=== PATIENT | female | born 1975 | race Caucasian/White ===

== ENCOUNTER 2016-09-15 12:15 | Emergency (ER) | payer MEDICAID ==
[~2016-09-15] VITALS: Ht 165.1 cm; Wt 86.6 kg
[~2016-09-15 12:15] MED LIST: ADVAIR 100-501 EACH INH; BACK & BODY PA1 EACH PO; CEPHALEXIN500 MG PO; CORTISPORIN EAR10 ML AS; DOXYCYCLINE HY100 MG PO; GABAPENTIN600 MG PO; GUAIFENESIN-COD10 ML PO; IBUPROFEN600 MG PO; KEFLEX500 MG PO; LEVOFLOXACIN750 MG PO; NEURONTIN600 MG PO; NORCO 5-325 TA1 EACH PO; ORPHENADRINE C100 MG PO; PSEUDOEPHEDRINE30 MG PO; TRAMADOL HCL50 MG PO; ULTRAM50 MG PO; VENTOLIN HFA18 GM INH; ZYRTEC-D TABLE1 EACH PO
[2016-09-15] MEDS ORDERED: FERROCITE324 MG PO (12:27)
[2016-11-01] MEDS ORDERED: LAMICTAL100 MG PO (20:27)
== END 2016-09-15 13:23 | disposition home or self-care (01) ==
LOC: ED 12:15
DX: T52.91XA Toxic effect of unspecified organic solvent, accidental (unintentional), initial encounter (principal); T30.4 Corrosion of unspecified body region, unspecified degree; F17.200 Nicotine dependence, unspecified, uncomplicated; Z90.49 Acquired absence of other specified parts of digestive tract; Z88.8 Allergy status to other drugs, medicaments and biological substances; Z88.0 Allergy status to penicillin; Z79.899 Other long term (current) drug therapy
CPT/HCPCS: 99282

== ENCOUNTER 2017-09-18 15:50 | Emergency (ER) | payer MEDICAID ==
[~2017-09-18] VITALS: Ht 165.1 cm; Wt 91.6 kg
[~2017-09-18 15:50] MED LIST changes: +FERROCITE324 MG PO; +LAMICTAL100 MG PO
[2017-09-18] MEDS ORDERED: DULERA 200 MCG/13 GM INH (16:14)
[2017-09-18] MEDS ORDERED: ACETAMINOPHEN500 MG PO (16:15)
[2017-09-18] MEDS ORDERED: AUGMENTIN 875-1 EACH PO (16:16)
[2017-09-18] MEDS ORDERED: NORCO 7.5-3251 EACH PO (16:18)
== END 2017-09-18 16:38 | disposition home or self-care (01) ==
LOC: ED 15:50
DX: H70.002 Acute mastoiditis without complications, left ear (principal); F17.200 Nicotine dependence, unspecified, uncomplicated; Z88.8 Allergy status to other drugs, medicaments and biological substances; Z79.899 Other long term (current) drug therapy
CPT/HCPCS: 99282

== ENCOUNTER 2017-10-06 20:53 | Emergency (ER) | payer MEDICAID ==
[~2017-10-06] VITALS: Ht 165.1 cm; Wt 89.8 kg
[~2017-10-06 20:53] MED LIST changes: +ACETAMINOPHEN500 MG PO; +AUGMENTIN 875-1 EACH PO; +DULERA 200 MCG/13 GM INH; +NORCO 7.5-3251 EACH PO
[2017-10-06] MEDS ORDERED: ASPIRIN325 MG PO (21:44)
[2017-10-06] MEDS ORDERED: TYLOPHEN500 MG PO (21:44)
[2017-10-06] MEDS ORDERED: NEURONTIN300 MG PO (21:45)
--- OUTSIDE RECORDS SUMMARY | 2017-10-07 01:06 | XMS | Clinical Summary ---
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 | radicu | | | lopath | | | y8/4/2 | | | 015Bip | | | olar | | | affect | | | alana | | | disord | | | er, | | | curren | | | t | | | episod | | | e mild | | | | | | (HCC)8 | | | / | | | 5Drug | | | addict | | | ion | | | (HCC)8 | | | /4201 | | | 5Seizu | | | res | | | (HCC)? | | | Past | | | Surgic | | | al | | | Histor | | | yProce | | | dureLa | | | terali | | | tyDate | | | Tympan | | | ostomy | | | tube | | | placem | | | entBil | | | ateral | | | 02/02/ | | | 10vent | | | ilatio | | | n tube | | | | | | bilate | | | ralMas | | | toid | | | surger | | | yBilat | | | eral02 | | | /02/10 | | | radica | | | l | | | mastoi | | | dectom | | | y | | | bilate | | | ralCho | | | lecyst | | | ectomy | | | Lumbar | | | disc | | | surger | | | yUpper | | | | | | gastro | | | intest | | | inal | | | endosc | | | opy11/ | | | 20/08U | | | pper | | | gastro | | | intest | | | inal | | | endosc | | | opy05/ | | | 22/071 | | | . | | | Upper | | | gastro | | | intest | | | inal | | | bleedi | | | ng | | | from | | | antral | | | | | | erosio | | | ns; 2. | | | | | | Chroni | | | c | | | abdomi | | | nal | | | pain, | | | etiolo | | | gy | | | unclea | | | r.Hand | | | | | | surger | | | y7/201 | | | 3x5Bac | | | k | | | surger | | | yAbdom | | | en | | | surger | | | yAdeno | | | idecto | | | myInci | | | erwin | | | and | | | draina | | | ge10/3 | | | 02/2013 | | | IandD | | | of | | | LEFT | | | Ankle | | | Absess | | | ;Later | | | ality: | | | | | | Left;S | | | urgeon | | | : Osmany | | | E | | | Willar | | | d, | | | MD;Loc | | | ation: | | | [facility] | | | MAIN | | | ORAnkl | | | e | | | surger | | | yLeft? | | | ?6/ | | | 19/15 | | | 12:00 | | | AM | | | [facility] | | [facility] | | | alFrom | | | PCP | | | Obtain | | | | | | medica | | | tion | | | from a | | | | | | single | | | | | | source | | | .All | | | medica | | | tion | | | should | | | be | | | obtain | | | ed | | | from | | | PCP - | | | Joce | | | Hendricks | | | Refer | | | back | | | to PCP | | | for | | | manage | | | ment | | | of all | | | | | | chroni | | | c | | | condit | | | ions.C | | | are | | | Guidel | | | slim | | | Restri | | | ct use | | | of | | | opioid | | | s in | | | ED to | | | only | | | obviou | | | s | | | trauma | | | or | | | severe | | | | | | medica | | | l | | | issues | | | . | | | Establ | | | meka | | | clearl | | | y that | | | no | | | opiate | | | s or | | | benzod | | | iazepi | | | yo | | | will | | | be | | | given | | | for | | | chroni | | | c | | | condit | | | ions. | | | Offer | | | | | | crisis | | | | | | servic | | | es for | | | | | | referr | | | al to | | | mental | | | | | | health | | | or | | | drug | | | depend | | | ency | | | treatm | | | ent. | | | Questi | | | on if | | | Primar | | | y Care | | | has | | | been | | | establ | | | ished. | | | | | | Provid | | | e | | | educat | | | ion | | | regard | | | ing | | | approp | | | riate | | | use of | | | the | | | Emerge | | | ncy | | | RoomHi | | | story | | | | | | Reason | | | for | | | Referr | | | al.Pat | | | ient | | | was | | | automa | | | ticall | | | y | | | referr | | | ed by | | | YOKASTA | | | on Tue | | | Mar | | | 12 | | | 15:28: | | | 02 MDT | | | 2012 | | | for | | | meetin | | | g or | | | exceed | | | ing | | | the | | | number | | | of | | | visits | | | | | | define | | | d by | | | your | | | facili | | | ty.Mis | | | cellan | | | eous | | | Other | | | NotesH | | | istory | | | of | | | metham | | | phetam | | | ine | | | abuse | | | and | | | drug | | | seekig | | | n | | | behavi | | | orCrit | | | eria | | | met | | | Care | | | Guidel | | | slim | | | Medica | | | id 5 | | | in 12 | | | 4 | | | visits | | | in | | | 60Know | | | n | | | Aliase | | | sNo | | | known | | | aliase | | | s. The | | | above | | | | | | inform | | | ation | | | is | | | provid | | | ed for | | | the | | | sole | | | purpos | | | e of | | | patien | | | t | | | treatm | | | ent. | | | Use of | | | this | | | inform | | | ation | | | beyond | | | the | | | terms | | | of | | | Data | | | Sharin | | | g | | | Memora | | | ndum | | | of | | | Unders | | | tandin | | | g and | | | Licens | | | e | | | Agreem | | | ent is | | | | | | prohib | | | ited. | | | In | | | certai | | | n | | | cases | | | not | | | all | | | visits | | | may | | | be | | | repres | | | ented. | | | | | | Consul | | | t the | | | aforem | | | ention | | | ed | | | facili | | | ties | | | for | | | additi | | | onal | | | inform | | | ation. | | | 2018 | | | Collec | | | tive | | | Medica | | | l | | | Techn[employer] | | | logies | | | , Inc[employer] | | | - | | | [place] | | | [place] | | | [place], | | | [place] - | | | info@c | | | ollect | | | ivemed | | | icalte | | | ch.com | | | | +---+--------+ + +--------+ +---+ + | XR KNEE RIGHT 1 - 2 | STAT | 08/25/2017 | | Results for this | | VW | | 1341 PDT | | procedure are in the | | | | | | results section. | + +--------+ +---+ + | ED INFORMATION | Routin | 08/25/2017 | | | | EXCHANGE | e | 1217 PDT | | | + +--------+ +---+ + +---+--------+ | | | | | Proced | | | ure | | | Note - | | | Ivon, | | | Lab In | | | | | | Hlseve | | | n - | | | | | | 2017 | | | 1218 | | | PDT | | | Format | | | ting | | | of | | | this | | | note | | | may be | | | | | | differ | | | ent | | | from | | | the | | | origin | | | al.IVON | | | E12:17 | | | MELISS | | | A | | | [id number] | | | [id number] | | | This | | | patien | | | t has | | | regist | | | ered | | | at the | | | | | | Provid | | | ence | | | [facility] | | | [facility] | [facility] | [facility] | | | l | | | Center | | | | | | Emerge | | | ncy | | | Depart | | | ment | | | For | | | more | | | inform | | | ation | | | visit: | | | | | | https: | | | //secu | | | re.ivon | | | ecarep | | | amaris.co | | | m/momo | | | ent/6b | | | [id number] | | | -ab4a- | | | 4fe1-a | | | e53-e1 | | | de2c55 | | | d7e8 | | | Securi | | | ty | | | Events | | | No | | | recent | | | | | | Securi | | | ty | | | Events | | | | | | curren | | | tly on | | | | | | fileED | | | Care | | | Guidel | | | slim | | | from | | | [facility] | | | alLast | | | | | | Update | | | d: | | | 8/7/17 | | | 5:02 | | | PM | | | Care | | | Coordi | | | nation | | | :PLEAS | | | E CALL | | | CASE | | | MANAGE | | | MENT | | | TO SEE | | | THIS | | | PATIEN | | | T IF | | | SHE | | | COMES | | | TO THE | | | ED | | | DURING | | | | | | BUSINE | | | SS | | | HOURS | | | AT ST | | | [facility] | | | [facility] | | | [facility] | | | AL.541 | | | -966-2 | | | 134 | | | FOR | | | CASE | | | MANAGE | | | R.Thes | | | e are | | | guidel | | | slim | | | and | | | the | | | provid | | | er | | | should | | | | | | exerci | | | se | | | clinic | | | al | | | judgme | | | nt | | | when | | | provid | | | ing | | | care.R | | | ecent | | | Emerge | | | ncy | | | Depart | | | ment | | | Visit | | | Summar | | | yAdmit | | | Date | | | Facili | | | ty | | | City | | | State | | | Type | | | Major | | | Type | | | Diagno | | | ses or | | | Chief | | | | | | Compla | | | int | | | Roberto | | | 15, | | | 2018 | | | Provid | | | ence | | | [facility] | [facility] [place] | | | [place] | | | Emerge | | | ncy | | | Emerge | | | ncy | | | Right | | | Knee | | | Swelli | | | ng | | | Roberto | | | 14, | | | 2018 | | | Provid | | | ence | | | [facility] | | | [facility] | [place] | | | [place] | | | Emerge | | | ncy | | | Emerge | | | ncy | | | Self | | | Mutila | | | tion | | | | | | Anxiet | | | y | | | disord | | | er, | | | unspec | | | ified | | | | | | Unspec | | | ified | | | multip | | | le | | | injuri | | | es, | | | initia | | | l | | | encoun | | | ter | | | Roberto | | | 13, | | | 2018 | | | Provid | | | ence | | | [facility] | | | [facility] [place] | | [place] | | | Emerge | | | ncy | | | Emerge | | | ncy | | | | | | Lacera | | | tion | | | Self | | | | | | Mutila | | | tion | | | | | | Other | | | proble | | | ms | | | relate | | | d to | | | lifest | | | yle | | | | | | Unspec | | | ified | | | multip | | | le | | | injuri | | | es, | | | initia | | | l | | | encoun | | | ter | | | Roberto | | | 10, | | | 2018 | | | [facility] | | | [place] | | [facility] Urgent | | | Care | | | [place] | [place] | | | Urgent | | | Care | | | | | | Outpat | | | ient | | | | | | Insect | | | Bite | | | | | | Enthes | | | opathy | | | , | | | unspec | | | ified | | | Todd | | | 14, | | | 2018 | | | [facility] | | | [place] | | | Urgent | | | Care | | | [place] | | | Urgent | | | Care | | | | | | Outpat | | | ient | | | Todd | | | 11, | | | 2018 | | | Provid | | | ence | | | [facility] | | | [facility] [place] | | [place] | | | Emerge | | | ncy | | | Emerge | | | ncy | | | back | | | pain/ | | | left | | | leg | | | pain | | | Back | | | Pain | | | | | | Sciati | | | ca, | | | left | | | side | | | Todd 2, | | | 2018 | | | [facility] | | | [place] | | | Urgent | | | Care | | | [place] | [place] | | | Urgent | | | Care | | | | | | Outpat | | | ient | | | | | | Pharyn | | | gitis | | | | | | Chroni | | | c | | | maxill | | | carlitos | | | sinusi | | | tis | | | | | | Otitis | | | | | | media, | | | | | | unspec | | | ified, | | | | | | bilate | | | ral | | | May | | | 21, | | | 2018 | | | [facility] [place] | [place] | [place] [facility] | | | Care | | [place] | | | Urgent | | | Care | | | | | | Outpat | | | ient | | | | | | Cough | | | | | | Medica | | | tion | | | Refill | | | | | | Unspec | | | ified | | | asthma | | | , | | | uncomp | | | licate | | | d | | | Nicoti | | | ne | | | depend | | | ence, | | | unspec | | | ified, | | | | | | uncomp | | | licate | | | d | | | Palpit | | | ations | | | | | | Bronch | | | itis, | | | not | | | specif | | | ied as | | | acute | | | or | | | chroni | | | c | | | Person | | | al | | | histor | | | y of | | | other | | | mental | | | and | | | behavi | | | oral | | | disord | | | ers | | | Apr | | | 30, | | | 2018 | | | [facility] | | | [place] | | [place] [facility]gent | | | Care | | | [place] | | | Urgent | | | Care | | | | | | Outpat | | | ient | | | | | | Follow | | | -up | | | | | | Contus | | | ion of | | | right | | | hand, | | | | | | initia | | | l | | | encoun | | | ter | | | Local | | | | | | infect | | | ion of | | | the | | | skin | | | and | | | subcut | | | aneous | | | | | | tissue | | | , | | | unspec | | | ified | | | Apr | | | 23, | | | 2018 | | | Provid | | | ence | | | [facility] | [facility] | [facility] [place] | | [place] | | | Emerge | | | ncy | | | Emerge | | | ncy | | | arm | | | swelli | | | ng | | | Toxic | | | effect | | | of | | | unspec | | | ified | | | spider | | | | | | venom, | | | | | | accide | | | ntal | | | (unint | | | ention | | | al), | | | subseq | | | uent | | | encoun | | | ter | | | Pain | | | in | | | right | | | hand | | | Apr | | | 21, | | | 2018 | | | Provid | | | ence | | | [facility] | [facility] | [facility] [place] | | [place] | | | Emerge | | | ncy | | | Emerge | | | ncy | | | Hand | | | wound, | | | | | | vomiti | | | ng | | | Hand | | | Swelli | | | ng | | | Cellul | | | itis, | | | unspec | | | ified | | | | | | Allerg | | | y, | | | unspec | | | ified, | | | | | | initia | | | l | | | encoun | | | ter | | | Apr | | | 17, | | | 2018 | | | Provid | | | ence | | | [facility] | [facility] [place] | | [place] | | | Emerge | | | ncy | | | Emerge | | | ncy | | | poss | | | arm | | | infect | | | ion | | | Wound | | | | | | Infect | | | ion | | | (Uncom | | | plicat | | | ed) | | | | | | Encoun | | | ter | | | for | | | other | | | specif | | | ied | | | afterc | | | are | | | | | | Encoun | | | ter | | | for | | | remova | | | l of | | | suture | | | s | | | E.D. | | | Visit | | | Count | | | (12 | | | mo.)Fa | | | cility | | | | | | Visits | | | Low | | | Acuity | | | | | | Provid | | | ence | | | [facility] | | | [facility] | [facility] | [facility] | | | l | | | Center | | | 16 0 | | | [facility] | | | al 2 0 | | | Total | | | 18 0 | | | Note: | | | Visits | | | | | | indica | | | te | | | total | | | known | | | visits | | | . | | | Medica | | | id Low | | | | | | Acuity | | | Dx | | | are | | | the | | | number | | | of | | | primar | | | y | | | diagno | | | ses on | | | the | | | Medica | | | id's | | | Low | | | Acuity | | | dx | | | list. | | | | | | Recent | | | | | | Inpati | | | ent | | | Visit | | | [facility] | | | yNo | | | record | | | ed | | | inpati | | | ent | | | visits | | | . Care | | | | | | Provid | | | ersPro | | | vider | | | PRC | | | Type | | | Phone | | | Fax | | | Servic | | | e | | | Dates | | | HENDRICKS | | | , | | | JOCE | | | MEHRAN, | | | MD | | | Indivi | | | dual | | | or | | | Groups | | | (of | | | Indivi | | | duals) | | | | | | Curren | | | t | | | ZEB, | | | COLT | | | | | | CLAUDIO, | | | MD | | | Indivi | | | dual | | | or | | | Groups | | | (of | | | Indivi | | | duals) | | | (509) | | | | | | [phone] | | | 50 | | | (509) | | | 525-02 | | | 47 | | | Curren | | | t | | | COLT | | | ZEB | | | Primar | | | y Care | | | | | | (509) | | | [phone] | | | 90 | | | Curren | | | t | | | Wayne | | | | | | Health | | | care | | | of | | | Washin | | | gton | | | Primar | | | y Care | | | | | | Curren | | | t | | | BRIDGE | | | T | | | STEINE | | | R | | | Primar | | | y Care | | | (509) | | | | | | [phone] | | | 00 | | | (509) | | | [phone] | | | 07 | | | Curren | | | t | | | Care | | | Histor | | | yMedic | | | al/Alexandr | | | gical6 | | | /15/16 | | | 12:00 | | | AM | | | Provid | | | ence | | | St[facility] | | | [facility] | | | [facility] | | | l | | | Center | | | Pancre | | | atitis | | | 09/200 | | | 9Pepti | | | c | | | ulcer | | | diseas | | | e/Uppe | | | r GI | | | bleed/ | | | chroni | | | c | | | abdomi | | | nal | | | pain/N | | | SAID | | | ulcers | | | Bipola | | | r 1 | | | disord | | | er | | | (HCC)R | | | upture | | | d | | | disklu | | | mbar | | | spineH | | | yperte | | | nsionO | | | piate | | | depend | | | ence | | | (HCC)h | | | ydroco | | | done | | | drug | | | of | | | choice | | | for | | | awhile | | | Mastoi | | | ditisr | | | ecurre | | | ntDive | | | rticul | | | | | | diseas | | | e | | | small | | | and | | | large | | | intest | | | ine, | | | no | | | perfor | | | ati or | | | | | | absces | | | sIBS | | | (irrit | | | able | | | bowel | | | syndro | | | me)Love | | | ic | | | disord | | | erMigr | | | aineAs | | | thmaHe | | | patiti | | | s | | | CRenal | | | waylon | | | necros | | | is | | | NOS09/ | | | 2011Ca | | | me | | | with | | | sepsis | | | Low | | | back | | | painch | | | ronicM | | | ethamp | | | hetami | | | ne | | | use08/ | | | 2012on | | | going. | | | | | | Hospit | | | alized | | | after | | | meth | | | use | | | with | | | hypote | | | nsion. | | | Pneumo | | | nia12/ | | | 2011wi | | | th | | | compli | | | cated | | | parapn | | | eumoni | | | c | | | effusi | | | on s/p | | | tube | | | thorac | | | tocost | | | omypar | | | | | | Hospit | | | alized | | | for 2 | | | weeks | | | with | | | pleura | | | l | | | effusi | | | on, | | | then | | | compli | | | cated | | | by | | | HAP.Bl | | | ood | | | transf | | | usion1 | | | 991,19 | | | 97gi | | | bleedi | | | ngAbsc | | | ess | | | and | | | cellul | | | itisFr | | | om | | | using | | | methAn | | | emiaCo | | | ncussi | | | on12/1 | | | 4/14Ri | | | ght | | | lumbar | | | | | | radicu | | | lopath | | | y8/4/2 | | | 015Bip | | | olar | | | affect | | | alana | | | disord | | | er, | | | curren | | | 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 | | | Past | | | Surgic | | | al | | | Histor | | | yProce | | | dureLa | | | terali | | | tyDate | | | Tympan | | | ostomy | | | tube | | | placem | | | entBil | | | ateral | | | 03/15/ | | | 10vent | | | ilatio | | | n tube | | | | | | bilate | | | ralMas | | | toid | | | surger | | | yBilat | | | eral02 | | | /03/23 | | | radica | | | l | | | mastoi | | | dectom | | | y | | | bilate | | | ralCho | | | lecyst | | | ectomy | | | Lumbar | | | disc | | | surger | | | yUpper | | | | | | gastro | | | intest | | | inal | | | endosc | | | opy11/ | | | 20/08U | | | pper | | | gastro | | | intest | | | inal | | | endosc | | | opy05/ | | | 22/071 | | | . | | | Upper | | | gastro | | | intest | | | inal | | | bleedi | | | ng | | | from | | | antral | | | | | | erosio | | | ns; 2. | | | | | | Chroni | | | c | | | abdomi | | | nal | | | pain, | | | etiolo | | | gy | | | unclea | | | r.Hand | | | | | | surger | | | y7/201 | | | 3x5Bac | | | k | | | surger | | | yAbdom | | | en | | | surger | | | yAdeno | | | idecto | | | myInci | | | erwin | | | and | | | draina | | | ge10/3 | | | 02/2013 | | | IandD | | | of | | | LEFT | | | Ankle | | | Absess | | | ;Later | | | ality: | | | | | | Left;S | | | urgeon | | | : Osmany | | | E | | | Willar | | | d, | | | MD;Loc | | | ation: | | | [facility] | | | MAIN | | | ORAnkl | | | e | | | surger | | | yLeft? | | | ?6/ | | | 19/15 | | | 12:00 | | | AM | | | [facility] [place] | | [facility] | | | alFrom | | | [facility] | | | Obtain | | | | | | medica | | | tion | | | from a | | | | | | single | | | | | | source | | | .All | | | medica | | | tion | | | should | | | be | | | obtain | | | ed | | | from | | | PCP - | | | Joce | | | Hendricks | | | Refer | | | back | | | to PCP | | | for | | | manage | | | ment | | | of all | | | | | | chroni | | | c | | | condit | | | ions.C | | | are | | | Guidel | | | slim | | | Restri | | | ct use | | | of | | | opioid | | | s in | | | ED to | | | only | | | obviou | | | s | | | trauma | | | or | | | severe | | | | | | medica | | | l | | | issues | | | . | | | Establ | | | meka | | | clearl | | | y that | | | no | | | opiate | | | s or | | | benzod | | | iazepi | | | yo | | | will | | | be | | | given | | | for | | | chroni | | | c | | | condit | | | ions. | | | Offer | | | | | | crisis | | | | | | servic | | | es for | | | | | | referr | | | al to | | | mental | | | | | | health | | | or | | | drug | | | depend | | | ency | | | treatm | | | ent. | | | Questi | | | on if | | | Primar | | | y Care | | | has | | | been | | | establ | | | ished. | | | | | | Provid | | | e | | | educat | | | ion | | | regard | | | ing | | | approp | | | riate | | | use of | | | the | | | Emerge | | | ncy | | | RoomHi | | | story | | | | | | Reason | | | for | | | Referr | | | al.Pat | | | ient | | | was | | | automa | | | ticall | | | y | | | referr | | | ed by | | | YOKASTA | | | on Tue | | | Mar | | | 12 | | | 15:28: | | | 02 MDT | | | 2012 | | | for | | | meetin | | | g or | | | exceed | | | ing | | | the | | | number | | | of | | | visits | | | | | | define | | | d by | | | your | | | facili | | | ty.Mis | | | cellan | | | eous | | | Other | | | NotesH | | | istory | | | of | | | metham | | | phetam | | | ine | | | abuse | | | and | | | drug | | | seekig | | | n | | | behavi | | | orCrit | | | eria | | | met | | | Care | | | Guidel | | | slim | | | Medica | | | id 5 | | | in 12 | | | 4 | | | visits | | | in | | | 60Know | | | n | | | Aliase | | | sNo | | | known | | | aliase | | | s. The | | | above | | | | | | inform | | | ation | | | is | | | provid | | | ed for | | | the | | | sole | | | purpos | | | e of | | | patien | | | t | | | treatm | | | ent. | | | Use of | | | this | | | inform | | | ation | | | beyond | | | the | | | terms | | | of | | | Data | | | Sharin | | | g | | | Memora | | | ndum | | | of | | | Unders | | | tandin | | | g and | | | Licens | | | e | | | Agreem | | | ent is | | | | | | prohib | | | ited. | | | In | | | certai | | | n | | | cases | | | not | | | all | | | visits | | | may | | | be | | | repres | | | ented. | | | | | | Consul | | | t the | | | aforem | | | ention | | | ed | | | facili | | | ties | | | for | | | additi | | | onal | | | inform | | | ation. | | | 2017 | | | [facility] | | | tive | | | [employer] | | | l | | | [employer] | | | logies | | | , [employer] | | | - | | | [place] | | | [place] | | | [place], | | | [place] - | | | info@[email or web address] | | | ollect | | | ivemed | | | icalte | | | [email or web address] | | | | +---+--------+ + +--------+ +---+---+ | ED INFORMATION | Routin | 08/24/2017 | | | | EXCHANGE | e | 0017 PDT | | | + +--------+ +---+---+ +---+--------+ | | | | | Proced | | | ure | | | Note - | | | Ivon, | | | Lab In | | | | | | Hlseve | | | n - | | | 08/24/ | | | 2018 | | | 0018 | | | PDT | | | Format | | | ting | | | of | | | this | | | note | | | may be | | | | | | differ | | | ent | | | from | | | the | | | origin | | | al.IVON | | | E00:16 | | | MELISS | | | A | | | [id number] | | | [id number] | | | This | | | patien | | | t has | | | regist | | | ered | | | at the | | | | | | Provid | | | ence | | | [facility] | | | | | | Emerge | | | ncy | | | Depart | | | ment | | | For | | | more | | | inform | | | ation | | | visit: | | | | | | https: | | | //secu | | | re.ivon | | | ecarep | | | [email or web address] | | | m/momo | | | ent/6b | | | [id number] | | | -ab4a- | | | [id number] | | | [id number] | | | [id number] | | | [id number] | | | Securi | | | ty | | | Events | | | No | | | recent | | | | | | Securi | | | ty | | | Events | | | | | | curren | | | tly on | | | | | | fileED | | | Care | | | Guidel | | | slim | | | from | | | [facility] | | | alLast | | | | | | Update | | | d: | | | 8/7/17 | | | 5:02 | | | PM | | | Care | | | Coordi | | | nation | | | :PLEAS | | | E CALL | | | CASE | | | MANAGE | | | MENT | | | TO SEE | | | THIS | | | PATIEN | | | T IF | | | SHE | | | COMES | | | TO THE | | | ED | | | DURING | | | | | | BUSINE | | | SS | | | HOURS | | | AT [facility] | | | [facility] | | | [facility] | | | [facility] | | | [phone] | | | [phone] | | | [phone] | | | FOR | | | CASE | | | MANAGE | | | R.Thes | | | e are | | | guidel | | | slim | | | and | | | the | | | provid | | | er | | | should | | | | | | exerci | | | se | | | clinic | | | al | | | judgme | | | nt | | | when | | | provid | | | ing | | | care.R | | | ecent | | | Emerge | | | ncy | | | Depart | | | ment | | | Visit | | | [facility] | | | yAdmit | | | Date | | | Facili | | | ty | | | City | | | State | | | Type | | | Major | | | Type | | | Diagno | | | ses or | | | Chief | | | | | | Compla | | | int | | | Roberto | | | 14, | | | 2018 | | | Provid | | | ence | | | [facility] | [place] | | | [place] | | | Emerge | | | ncy | | | Emerge | | | ncy | | | Roberto | | | 13, | | | 2018 | | | Provid | | | ence | | | [facility] | [facility] | [place] | | | [place] | | | Emerge | | | ncy | | | Emerge | | | ncy | | | | | | Lacera | | | tion | | | Self | | | | | | Mutila | | | tion | | | | | | Other | | | proble | | | ms | | | relate | | | d to | | | lifest | | | yle | | | | | | Unspec | | | ified | | | multip | | | le | | | injuri | | | es, | | | initia | | | l | | | encoun | | | ter | | | Roberto | | | 10, | | | 2018 | | | [facility] | | | [place] | | [place] Urgent | | | Care | | | [place] | | [place] | | | Urgent | | | Care | | | | | | Outpat | | | ient | | | | | | Insect | | | Bite | | | | | | Enthes | | | opathy | | | , | | | unspec | | | ified | | | Todd | | | 14, | | | 2018 | | | [facility] | | | [place] | | [place] Urgent | | | Care | | | [place] | | | Urgent | | | Care | | | | | | Outpat | | | ient | | | Todd | | | 11, | | | 2018 | | | Provid | | | ence | | | [facility] | | | [facility] | [place] | | | [place] | | | Emerge | | | ncy | | | Emerge | | | ncy | | | back | | | pain/ | | | left | | | leg | | | pain | | | Back | | | Pain | | | | | | Sciati | | | ca, | | | left | | | side | | | Todd 2, | | | 2018 | | | [facility] | | | [place] | | | Urgent | | | Care | | | [place] | | [place] | | | Urgent | | | Care | | | | | | Outpat | | | ient | | | | | | Pharyn | | | gitis | | | | | | Chroni | | | c | | | maxill | | | carlitos | | | sinusi | | | tis | | | | | | Otitis | | | | | | media, | | | | | | unspec | | | ified, | | | | | | bilate | | | ral | | | May | | | 21, | | | 2018 | | | [facility] | | | [place] | | [place] [facility]gent | | | Care | | | [place] | | [place] | | | Urgent | | | Care | | | | | | Outpat | | | ient | | | | | | Cough | | | | | | Medica | | | tion | | | Refill | | | | | | Unspec | | | ified | | | asthma | | | , | | | uncomp | | | licate | | | d | | | Nicoti | | | ne | | | depend | | | ence, | | | unspec | | | ified, | | | | | | uncomp | | | licate | | | d | | | Palpit | | | ations | | | | | | Bronch | | | itis, | | | not | | | specif | | | ied as | | | acute | | | or | | | chroni | | | c | | | Person | | | al | | | histor | | | y of | | | other | | | mental | | | and | | | behavi | | | oral | | | disord | | | ers | | | Apr | | | 30, | | | 2018 | | | [facility] | | | [place] | [facility] | [facility] [place] | | | [place] | | [place] | | | Urgent | | | Care | | | | | | Outpat | | | ient | | | | | | Follow | | | -up | | | | | | Contus | | | ion of | | | right | | | hand, | | | | | | initia | | | l | | | encoun | | | ter | | | Local | | | | | | infect | | | ion of | | | the | | | skin | | | and | | | subcut | | | aneous | | | | | | tissue | | | , | | | unspec | | | ified | | | Apr | | | 23, | | | 2018 | | | Provid | | | ence | | | [facility] | [facility] [place] | | | [place] | | | Emerge | | | ncy | | | Emerge | | | ncy | | | arm | | | swelli | | | ng | | | Toxic | | | effect | | | of | | | unspec | | | ified | | | spider | | | | | | venom, | | | | | | accide | | | ntal | | | (unint | | | ention | | | al), | | | subseq | | | uent | | | encoun | | | ter | | | Pain | | | in | | | right | | | hand | | | Apr | | | 21, | | | 2018 | | | Provid | | | ence | | | [facility] | | | [facility] | [place] | | | [place] | | | Emerge | | | ncy | | | Emerge | | | ncy | | | Hand | | | wound, | | | | | | vomiti | | | ng | | | Hand | | | Swelli | | | ng | | | Cellul | | | itis, | | | unspec | | | ified | | | | | | Allerg | | | y, | | | unspec | | | ified, | | | | | | initia | | | l | | | encoun | | | ter | | | Apr | | | 17, | | | 2018 | | | Provid | | | ence | | | [facility] | | | [facility] | [place] | | | [place] | | | Emerge | | | ncy | | | Emerge | | | ncy | | | poss | | | arm | | | infect | | | ion | | | Wound | | | | | | Infect | | | ion | | | (Uncom | | | plicat | | | ed) | | | | | | Encoun | | | ter | | | for | | | other | | | specif | | | ied | | | afterc | | | are | | | | | | Encoun | | | ter | | | for | | | remova | | | l of | | | suture | | | s | | | E.D. | | | Visit | | | Count | | | (12 | | | mo.)Fa | | | cility | | | | | | Visits | | | Low | | | Acuity | | | | | | Provid | | | ence | | | St[facility] | | | [facility] | | | [facility] | | | l | | | Center | | | 15 0 | | | [facility] | [facility] | | | al 2 0 | | | Total | | | 17 0 | | | Note: | | | Visits | | | | | | indica | | | te | | | total | | | known | | | visits | | | . | | | Medica | | | id Low | | | | | | Acuity | | | Dx | | | are | | | the | | | number | | | of | | | primar | | | y | | | diagno | | | ses on | | | the | | | Medica | | | id's | | | Low | | | Acuity | | | dx | | | list. | | | | | | Recent | | | | | | Inpati | | | ent | | | Visit | | | Summar | | | yNo | | | record | | | ed | | | inpati | | | ent | | | visits | | | . Care | | | | | | Provid | | | ersPro | | | vider | | | PRC | | | Type | | | Phone | | | Fax | | | Servic | | | e | | | Dates | | | HENDRICKS | | | , | | | JOCE | | | MEHRAN, | | | MD | | | Indivi | | | dual | | | or | | | Groups | | | (of | | | Indivi | | | duals) | | | | | | Curren | | | t | | | ZEB, | | | COLT | | | | | | CLAUDIO, | | | MD | | | Indivi | | | dual | | | or | | | Groups | | | (of | | | Indivi | | | duals) | | | (509) | | | | | | 525-66 | | | 50 | | | (509) | | | 525-02 | | | 47 | | | Curren | | | t | | | COLT | | | ZEB | | | Primar | | | y Care | | | | | | (509) | | | 575-34 | | | 90 | | | Curren | | | t | | | [facility] | | | | | | Health | | | care | | | of | | | Washin | | | gton | | | Primar | | | y Care | | | | | | Curren | | | t | | | BRIDGE | | | T | | | STEINE | | | R | | | Primar | | | y Care | | | (509) | | | | | | 444-82 | | | 00 | | | (509) | | | 444-78 | | | 07 | | | Curren | | | t | | | Care | | | Histor | | | yMedic | | | al/Alexandr | | | [email or web address] | | | /15/16 | | | 12:00 | | | AM | | | Provid | | | ence | | | St[facility] | | | [facility] | | | Med[facility] | | | l | | | Center | | | Pancre | | | atitis | | | 09/200 | | | 9Pepti | | | c | | | ulcer | | | diseas | | | e/Uppe | | | r GI | | | bleed/ | | | chroni | | | c | | | abdomi | | | nal | | | pain/N | | | SAID | | | ulcers | | | Bipola | | | r 1 | | | disord | | | er | | | (HCC)R | | | upture | | | d | | | disklu | | | mbar | | | spineH | | | yperte | | | nsionO | | | piate | | | depend | | | ence | | | (HCC)h | | | ydroco | | | done | | | drug | | | of | | | choice | | | for | | | awhile | | | Mastoi | | | ditisr | | | ecurre | | | ntDive | | | rticul | | | | | | diseas | | | e | | | small | | | and | | | large | | | intest | | | ine, | | | no | | | perfor | | | ati or | | | | | | absces | | | sIBS | | | (irrit | | | able | | | bowel | | | syndro | | | me)Love | | | ic | | | disord | | | erMigr | | | aineAs | | | thmaHe | | | patiti | | | s | | | CRenal | | | waylon | | | necros | | | is | | | NOS09/ | | | 2011Ca | | | me | | | with | | | sepsis | | | Low | | | back | | | painch | | | ronicM | | | ethamp | | | hetami | | | ne | | | use08/ | | | 2012on | | | going. | | | | | | Hospit | | | alized | | | after | | | meth | | | use | | | with | | | hypote | | | nsion. | | | Pneumo | | | nia12/ | | | 2011wi | | | th | | | compli | | | cated | | | parapn | | | eumoni | | | c | | | effusi | | | on s/p | | | tube | | | thorac | | | tocost | | | omypar | | | | | | Hospit | | | alized | | | for 2 | | | weeks | | | with | | | pleura | | | l | | | effusi | | | on, | | | then | | | compli | | | cated | | | by | | | HAP.Bl | | | ood | | | transf | | | usion1 | | | 991,19 | | | 97gi | | | bleedi | | | ngAbsc | | | ess | | | and | | | cellul | | | itisFr | | | om | | | using | | | methAn | | | emiaCo | | | ncussi | | | on12/1 | | | 4/14Ri | | | ght | | | lumbar | | | | | | radicu | | | lopath | | | y8/4/2 | | | 015Bip | | | olar | | | affect | | | alana | | | disord | | | er, | | | curren | | | 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 | | | Past | | | Surgic | | | al | | | Histor | | | yProce | | | dureLa | | | terali | | | tyDate | | | Tympan | | | ostomy | | | tube | | | placem | | | entBil | | | ateral | | | 02/02/ | | | 10vent | | | ilatio | | | n tube | | | | | | bilate | | | ralMas | | | toid | | | surger | | | yBilat | | | eral02 | | | /02/10 | | | radica | | | l | | | mastoi | | | dectom | | | y | | | bilate | | | ralCho | | | lecyst | | | ectomy | | | Lumbar | | | disc | | | surger | | | yUpper | | | | | | gastro | | | intest | | | inal | | | endosc | | | opy11/ | | | 20/08U | | | pper | | | gastro | | | intest | | | inal | | | endosc | | | opy05/ | | | 22/071 | | | . | | | Upper | | | gastro | | | intest | | | inal | | | bleedi | | | ng | | | from | | | antral | | | | | | erosio | | | ns; 2. | | | | | | Chroni | | | c | | | abdomi | | | nal | | | pain, | | | etiolo | | | gy | | | unclea | | | r.Hand | | | | | | surger | | | y7/201 | | | 3x5Bac | | | k | | | surger | | | yAbdom | | | en | | | surger | | | yAdeno | | | idecto | | | myInci | | | erwin | | | and | | | draina | | | ge10/3 | | | 02/2013 | | | IandD | | | of | | | LEFT | | | Ankle | | | Absess | | | ;Later | | | ality: | | | | | | Left;S | | | urgeon | | | : Osmany | | | E | | | Willar | | | d, | | | MD;Loc | | | ation: | | | [facility] | | | MAIN | | | ORAnkl | | | e | | | surger | | | yLeft? | | | ?6/ | | | 19/15 | | | 12:00 | | | AM | | | [place] [facility] [place] [facility] | | | [facility] | | | [facility] | | | alFrom | | | PCP | | | Obtain | | | | | | medica | | | tion | | | from a | | | | | | single | | | | | | source | | | .All | | | medica | | | tion | | | should | | | be | | | obtain | | | ed | | | from | | | PCP - | | | Joce | | | Hendricks | | | Refer | | | back | | | to PCP | | | for | | | manage | | | ment | | | of all | | | | | | chroni | | | c | | | condit | | | ions.C | | | are | | | Guidel | | | slim | | | Restri | | | ct use | | | of | | | opioid | | | s in | | | ED to | | | only | | | obviou | | | s | | | trauma | | | or | | | severe | | | | | | medica | | | l | | | issues | | | . | | | Establ | | | meka | | | clearl | | | y that | | | no | | | opiate | | | s or | | | benzod | | | iazepi | | | yo | | | will | | | be | | | given | | | for | | | chroni | | | c | | | condit | | | ions. | | | Offer | | | | | | crisis | | | | | | servic | | | es for | | | | | | referr | | | al to | | | mental | | | | | | health | | | or | | | drug | | | depend | | | ency | | | treatm | | | ent. | | | Questi | | | on if | | | Primar | | | y Care | | | has | | | been | | | establ | | | ished. | | | | | | Provid | | | e | | | educat | | | ion | | | regard | | | ing | | | approp | | | riate | | | use of | | | the | | | Emerge | | | ncy | | | RoomHi | | | story | | | | | | Reason | | | for | | | Referr | | | al.Pat | | | ient | | | was | | | automa | | | ticall | | | y | | | referr | | | ed by | | | YOKASTA | | | on Tue | | | Mar | | | 12 | | | 15:28: | | | 02 MDT | | | 2012 | | | for | | | meetin | | | g or | | | exceed | | | ing | | | the | | | number | | | of | | | visits | | | | | | define | | | d by | | | your | | | facili | | | ty.Mis | | | cellan | | | eous | | | Other | | | NotesH | | | 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 The | | | above | | | | | | inform | | | ation | | | is | | | provid | | | ed for | | | the | | | sole | | | purpos | | | e of | | | patien | | | t | | | treatm | | | ent. | | | Use of | | | this | | | inform | | | ation | | | beyond | | | the | | | terms | | | of | | | Data | | | Sharin | | | g | | | Memora | | | ndum | | | of | | | Unders | | | tandin | | | g and | | | Licens | | | e | | | Agreem | | | ent is | | | | | | prohib | | | ited. | | | In | | | certai | | | n | | | cases | | | not | | | all | | | visits | | | may | | | be | | | repres | | | ented. | | | | | | Consul | | | t the | | | aforem | | | ention | | | ed | | | facili | | | ties | | | for | | | additi | | | onal | | | inform | | | ation. | | | 2018 | | | Col[facility] | | | tive | | | Medica | | | l | | | [employer] | | | logies | | | , [employer] | | | - | | | [place] | | | [place] | | | [place], | | | [place] - | | | info@c | | | ollect | | | ivemed | | | icalte | | | ch.com | | | | +---+--------+ + +--------+ +---+ + | XR CHEST AP PORTABLE | STAT | 08/23/2017 | | Results for this | | | | 1721 PDT | | procedure are in the | | | | | | results section. | + +--------+ +---+ + | ED INFORMATION | Routin | 08/23/2017 | | | | EXCHANGE | e | 1536 PDT | | | + +--------+ +---+ + +---+--------+ | | | | | Proced | | | ure | | | Note - | | | Ivon, | | | Lab In | | | | | | Hlseve | | | n - | | | | | | 2017 | | | 1537 | | | PDT | | | Format | | | ting | | | of | | | this | | | note | | | may be | | | | | | differ | | | ent | | | from | | | the | | | origin | | | al.IVON | | | E15:36 | | | MELISS | | | A | | | [id number] | | | [id number] | | | This | | | patien | | | t has | | | regist | | | ered | | | at the | | | | | | Provid | | | ence | | | St[facility] | | | [facility] | | | [facility] | | | l | | | Center | | | | | | Emerge | | | ncy | | | Depart | | | ment | | | For | | | more | | | inform | | | ation | | | visit: | | | | | | https: | | | //secu | | | re.ivon | | | ecarep | | | amaris.co | | | m/momo | | | ent/6b | | | [id number] | | | -ab4a- | | | 4fe1-a | | | e53-e1 | | | de2c55 | | | d7e8 | | | Securi | | | ty | | | Events | | | No | | | recent | | | | | | Securi | | | ty | | | Events | | | | | | curren | | | tly on | | | | | | fileED | | | Care | | | Guidel | | | slim | | | from | | | [facility] | | | alLast | | | | | | Update | | | d: | | | 8/7/17 | | | 5:02 | | | PM | | | Care | | | Coordi | | | nation | | | :PLEAS | | | E CALL | | | CASE | | | MANAGE | | | MENT | | | TO SEE | | | THIS | | | PATIEN | | | T IF | | | SHE | | | COMES | | | TO THE | | | ED | | | DURING | | | | | | BUSINE | | | SS | | | HOURS | | | AT ST | | | [facility] | | | [facility] | | | [facility] | | | [phone] | | | [phone] | | | 134 | | | FOR | | | CASE | | | MANAGE | | | R.Thes | | | e are | | | guidel | | | slim | | | and | | | the | | | provid | | | er | | | should | | | | | | exerci | | | se | | | clinic | | | al | | | judgme | | | nt | | | when | | | provid | | | ing | | | care.R | | | ecent | | | Emerge | | | ncy | | | Depart | | | ment | | | Visit | | | Summar | | | yAdmit | | | Date | | | Facili | | | ty | | | City | | | State | | | Type | | | Major | | | Type | | | Diagno | | | ses or | | | Chief | | | | | | Compla | | | int | | | Roberto | | | 13, | | | 2018 | | | Provid | | | ence | | | [facility] | | | [facility] | [place] | | | [place] | | | Emerge | | | ncy | | | Emerge | | | ncy | | | Roberto | | | 10, | | | 2018 | | | [facility] | | | [place] | [facility] [place] [facility]gent | | | Care | | | [place] | [place] | | | Urgent | | | Care | | | | | | Outpat | | | ient | | | | | | Insect | | | Bite | | | | | | Enthes | | | opathy | | | , | | | unspec | | | ified | | | Todd | | | 14, | | | 2018 | | | [facility] | | | [place] | | | Urgent | | | Care | | | [place] | | | Urgent | | | Care | | | | | | Outpat | | | ient | | | Todd | | | 11, | | | 2018 | | | Provid | | | ence | | | [facility] | | | [facility] | [place] | | [place] | | | Emerge | | | ncy | | | Emerge | | | ncy | | | back | | | pain/ | | | left | | | leg | | | pain | | | Back | | | Pain | | | | | | Sciati | | | ca, | | | left | | | side | | | Todd 2, | | | 2018 | | | [facility] | | | [place] | | | Urgent | | | Care | | | [place] | [place] | | | Urgent | | | Care | | | | | | Outpat | | | ient | | | | | | Pharyn | | | gitis | | | | | | Chroni | | | c | | | maxill | | | carlitos | | | sinusi | | | tis | | | | | | Otitis | | | | | | media, | | | | | | unspec | | | ified, | | | | | | bilate | | | ral | | | May | | | 21, | | | 2018 | | | [facility] | | [place] | [facility] [place] [facility] | | | Care | | | [place] | | | Urgent | | | Care | | | | | | Outpat | | | ient | | | | | | Cough | | | | | | Medica | | | tion | | | Refill | | | | | | Unspec | | | ified | | | asthma | | | , | | | uncomp | | | licate | | | d | | | Nicoti | | | ne | | | depend | | | ence, | | | unspec | | | ified, | | | | | | uncomp | | | licate | | | d | | | Palpit | | | ations | | | | | | Bronch | | | itis, | | | not | | | specif | | | ied as | | | acute | | | or | | | chroni | | | c | | | Person | | | al | | | histor | | | y of | | | other | | | mental | | | and | | | behavi | | | oral | | | disord | | | ers | | | Apr | | | 30, | | | 2018 | | | [facility] | | | [place] | | [facility] | | | Care | | | [place] | | | Urgent | | | Care | | | | | | Outpat | | | ient | | | | | | Follow | | | -up | | | | | | Contus | | | ion of | | | right | | | hand, | | | | | | initia | | | l | | | encoun | | | ter | | | Local | | | | | | infect | | | ion of | | | the | | | skin | | | and | | | subcut | | | aneous | | | | | | tissue | | | , | | | unspec | | | ified | | | Apr | | | 23, | | | 2018 | | | Provid | | | ence | | | [facility] | | | [facility] [place] | | [place] | | | Emerge | | | ncy | | | Emerge | | | ncy | | | arm | | | swelli | | | ng | | | Toxic | | | effect | | | of | | | unspec | | | ified | | | spider | | | | | | venom, | | | | | | accide | | | ntal | | | (unint | | | ention | | | al), | | | subseq | | | uent | | | encoun | | | ter | | | Pain | | | in | | | right | | | hand | | | Apr | | | 21, | | | 2018 | | | Provid | | | ence | | | [facility] | | | [facility] | [place] | | [place] | | | Emerge | | | ncy | | | Emerge | | | ncy | | | Hand | | | wound, | | | | | | vomiti | | | ng | | | Hand | | | Swelli | | | ng | | | Cellul | | | itis, | | | unspec | | | ified | | | | | | Allerg | | | y, | | | unspec | | | ified, | | | | | | initia | | | l | | | encoun | | | ter | | | Apr | | | 17, | | | 2018 | | | Provid | | | ence | | | [facility] | | | [facility] | [place] | | [place] | | | Emerge | | | ncy | | | Emerge | | | ncy | | | poss | | | arm | | | infect | | | ion | | | Wound | | | | | | Infect | | | ion | | | (Uncom | | | plicat | | | ed) | | | | | | Encoun | | | ter | | | for | | | other | | | specif | | | ied | | | afterc | | | are | | | | | | Encoun | | | ter | | | for | | | remova | | | l of | | | suture | | | s | | | E.D. | | | Visit | | | Count | | | (12 | | | mo.)Fa | | | cility | | | | | | Visits | | | Low | | | Acuity | | | | | | Provid | | | ence | | | [facility] | | | [facility] | [facility] | [facility] | | | l | | | Center | | | 14 0 | | | [facility] | | | al 2 0 | | | Total | | | 16 0 | | | Note: | | | Visits | | | | | | indica | | | te | | | total | | | known | | | visits | | | . | | | Medica | | | id Low | | | | | | Acuity | | | Dx | | | are | | | the | | | number | | | of | | | primar | | | y | | | diagno | | | ses on | | | the | | | Medica | | | id's | | | Low | | | Acuity | | | dx | | | list. | | | | | | Recent | | | | | | Inpati | | | ent | | | Visit | | | [facility]mar | | | yNo | | | record | | | ed | | | inpati | | | ent | | | visits | | | . Care | | | | | | Provid | | | ersPro | | | vider | | | PRC | | | Type | | | Phone | | | Fax | | | Servic | | | e | | | Dates | | | HENDRICKS | | | , | | | JOCE | | | MEHRAN, | | | MD | | | Indivi | | | dual | | | or | | | Groups | | | (of | | | Indivi | | | duals) | | | | | | Curren | | | t | | | ZEB, | | | COLT | | | | | | CLAUDIO, | | | MD | | | Indivi | | | dual | | | or | | | Groups | | | (of | | | Indivi | | | duals) | | | (509) | | | | | | 525-66 | | | 50 | | | (509) | | | 525-02 | | | 47 | | | Curren | | | t | | | COLT | | | ZEB | | | Primar | | | y Care | | | | | | (509) | | | 575-34 | | | 90 | | | Curren | | | t | | | [facility] | | | | | | Health | | | care | | | of | | | Washin | | | gton | | | Primar | | | y Care | | | | | | Curren | | | t | | | BRIDGE | | | T | | | STEINE | | | R | | | Primar | | | y Care | | | (509) | | | | | | 444-82 | | | 00 | | | (509) | | | [phone] | | | 07 | | | Curren | | | t | | | Care | | | Histor | | | yMedic | | | al/Alexandr | | | [email or web address] | | | /15/16 | | | 12:00 | | | AM | | | Provid | | | ence | | | [facility] | | | [facility] | [facility] | | | l | | | Center | | | Pancre | | | atitis | | | 09/200 | | | 9Pepti | | | c | | | ulcer | | | diseas | | | e/Uppe | | | r GI | | | bleed/ | | | chroni | | | c | | | abdomi | | | nal | | | pain/N | | | SAID | | | ulcers | | | Bipola | | | r 1 | | | disord | | | er | | | (HCC)R | | | upture | | | d | | | disklu | | | mbar | | | spineH | | | yperte | | | nsionO | | | piate | | | depend | | | ence | | | (HCC)h | | | ydroco | | | done | | | drug | | | of | | | choice | | | for | | | awhile | | | Mastoi | | | ditisr | | | ecurre | | | ntDive | | | rticul | | | | | | diseas | | | e | | | small | | | and | | | large | | | intest | | | ine, | | | no | | | perfor | | | ati or | | | | | | absces | | | sIBS | | | (irrit | | | able | | | bowel | | | syndro | | | me)Love | | | ic | | | disord | | | erMigr | | | aineAs | | | thmaHe | | | patiti | | | s | | | CRenal | | | waylon | | | necros | | | is | | | NOS09/ | | | 2011Ca | | | me | | | with | | | sepsis | | | Low | | | back | | | painch | | | ronicM | | | ethamp | | | hetami | | | ne | | | use08/ | | | 2012on | | | going. | | | | | | Hospit | | | alized | | | after | | | meth | | | use | | | with | | | hypote | | | nsion. | | | Pneumo | | | nia12/ | | | 2011wi | | | th | | | compli | | | cated | | | parapn | | | eumoni | | | c | | | effusi | | | on s/p | | | tube | | | thorac | | | tocost | | | omypar | | | | | | Hospit | | | alized | | | for 2 | | | weeks | | | with | | | pleura | | | l | | | effusi | | | on, | | | then | | | compli | | | cated | | | by | | | HAP.Bl | | | ood | | | transf | | | usion1 | | | [phone] | | | 97gi | | | bleedi | | | ngAbsc | | | ess | | | and | | | cellul | | | itisFr | | | om | | | using | | | methAn | | | emiaCo | | | ncussi | | | on12/1 | | | 4/14Ri | | | ght | | | lumbar | | | | | | radicu | | | lopath | | | y8/4/2 | | | 015Bip | | | olar | | | affect | | | alana | | | disord | | | er, | | | curren | | | 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 | | | Past | | | Surgic | | | al | | | Histor | | | yProce | | | dureLa | | | terali | | | tyDate | | | Tympan | | | ostomy | | | tube | | | placem | | | entBil | | | ateral | | | 03/15/ | | | 10vent | | | ilatio | | | n tube | | | | | | bilate | | | ralMas | | | toid | | | surger | | | yBilat | | | eral02 | | | /03/23 | | | radica | | | l | | | mastoi | | | dectom | | | y | | | bilate | | | ralCho | | | lecyst | | | ectomy | | | Lumbar | | | disc | | | surger | | | yUpper | | | | | | gastro | | | intest | | | inal | | | endosc | | | opy11/ | | | 20/08U | | | pper | | | gastro | | | intest | | | inal | | | endosc | | | opy05/ | | | 22/071 | | | . | | | Upper | | | gastro | | | intest | | | inal | | | bleedi | | | ng | | | from | | | antral | | | | | | erosio | | | ns; 2. | | | | | | Chroni | | | c | | | abdomi | | | nal | | | pain, | | | etiolo | | | gy | | | unclea | | | r.Hand | | | | | | surger | | | y7/201 | | | 3x5Bac | | | k | | | surger | | | yAbdom | | | en | | | surger | | | yAdeno | | | idecto | | | myInci | | | erwin | | | and | | | draina | | | ge10/3 | | | 02/2013 | | | IandD | | | of | | | LEFT | | | Ankle | | | Absess | | | ;Later | | | ality: | | | | | | Left;S | | | urgeon | | | : Osmany | | | E | | | Willar | | | d, | | | MD;Loc | | | ation: | | | [facility] | | | MAIN | | | ORAnkl | | | e | | | surger | | | yLeft? | | | ?6/ | | | 19/15 | | | 12:00 | | | AM | | | [facility] | | | [facility] | | | [facility] | | | l | | | [facility] | | | alFrom | | | [facility] | | | Obtain | | | | | | medica | | | tion | | | from a | | | | | | single | | | | | | source | | | .All | | | medica | | | tion | | | should | | | be | | | obtain | | | ed | | | from | | | [facility] - | | | Joce | | | Hendricks | | | Refer | | | back | | | to [facility] | | | for | | | manage | | | ment | | | of all | | | | | | chroni | | | c | | | condit | | | ions.C | | | are | | | Guidel | | | slim | | | Restri | | | ct use | | | of | | | opioid | | | s in | | | ED to | | | only | | | obviou | | | s | | | trauma | | | or | | | severe | | | | | | medica | | | l | | | issues | | | . | | | Establ | | | meka | | | clearl | | | y that | | | no | | | opiate | | | s or | | | benzod | | | iazepi | | | yo | | | will | | | be | | | given | | | for | | | chroni | | | c | | | condit | | | ions. | | | Offer | | | | | | crisis | | | | | | servic | | | es for | | | | | | referr | | | al to | | | mental | | | | | | health | | | or | | | drug | | | depend | | | ency | | | treatm | | | ent. | | | Questi | | | on if | | | Primar | | | y Care | | | has | | | been | | | establ | | | ished. | | | | | | Provid | | | e | | | educat | | | ion | | | regard | | | ing | | | approp | | | riate | | | use of | | | the | | | Emerge | | | ncy | | | RoomHi | | | story | | | | | | Reason | | | for | | | Referr | | | al.Pat | | | ient | | | was | | | automa | | | ticall | | | y | | | referr | | | ed by | | | YOKASTA | | | on Tue | | | Mar | | | 12 | | | 15:28: | | | 02 MDT | | | 2012 | | | for | | | meetin | | | g or | | | exceed | | | ing | | | the | | | number | | | of | | | visits | | | | | | define | | | d by | | | your | | | facili | | | ty.Mis | | | cellan | | | eous | | | Other | | | NotesH | | | 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 The | | | above | | | | | | inform | | | ation | | | is | | | provid | | | ed for | | | the | | | sole | | | purpos | | | e of | | | patien | | | t | |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
--- OUTSIDE RECORDS SUMMARY | 2017-10-07 01:06 | XMS | Encounter Summary ---
Demographics + + + | Address | General Delivery | | | [place] [address] | + + + | Home Phone | | + + + | Preferred Language | Unknown | + + + | Marital Status | Single | + + + | Muslim Affiliation | Unknown | + + + | Race | Unknown | + + + | Ethnic Group | Unknown | + + + Author + + + | Author | [facility] | | | and [place] | + + + | Organization | [facility] | | | and [...] Team Providers + +------+ + | Care Film Touch Up Inspector Name | Role | Phone | + +------+ + | No, Physician | PCP | Unavailable | + +------+ + Reason for Visit + + + | Reason | Comments | + + + | Knee Problem | | + + + Encounter Details +--------+ + + + + | Date | Type | Department | Care Team | Description | +--------+ + + + + | 07/15/ | Emergency | [facility] | Jorje Romo, | Traumatic ecchymosis | | 2018 | | [facility] | MD [address] | of right knee, | | | | CENTER [address] | [place] | initial encounter | | | | [place] | [id number] | (Primary Dx) | | | | [address] | | | | | | [phone] | | | +--------+ + + + + Social History + [...] | | | + +---+---+---+ + + +---------+ + | Alcohol Use | Drinks/We | oz/Week | Comments | | | ek | | | + + +---------+ + | No | | | | + + +---------+ + + + + | Sex Assigned at | Date Recorded | | | | + + + | Not on file | | + + + as of this encounter Last Filed Vital Signs + + + + | Vital Sign | Reading | Time Taken | + + + + | Blood Pressure | 118/68 | 08/25/20171245 PDT | + + + + | Pulse | 82 | 08/25/20171245 PDT | + + + + | Temperature | 37 C (98.6 F) | 08/25/20171245 PDT | + + + + | Respiratory Rate | 20 | 08/25/20171245 PDT | + + + + | Oxygen Saturation | 99% | 08/25/20171245 PDT | + + + + | Inhaled Oxygen | - | - | | Concentration | | | + + + + | Weight | 88.2 kg (194 lb 7.1 | 08/25/2017 1246 PDT | | | oz) | | + + + + | Height | - | - | + + + + | Body Mass Index | 32.36 | 08/25/20176 PDT | + + + + in this encounter Functional Status + + + + | Functional Status | Response | Date of Assessment | + + + + | Are you deaf or do you have serious | No | 05/16/2015 | | difficulty hearing? | | | + + + + | Are you blind or do you have serious | No | 05/16/2015 | | difficulty seeing, even when wearing | | | | glasses? | | | + + + + | Do you have serious difficulty walking or | No | 05/16/2015 | | climbing stairs? (5 years old or older) | | | + + + + | Do you have difficulty dressing or bathing? | No | 05/16/2015 | | (5 years old or older) | | | + + + + | Because of a physical, mental, or emotional | Yes | 05/16/2015 | | condition, do you have difficulty doing | | | | errands alone such as visiting a doctor's | | | | office or shopping? [15 years old or | | | | older)] | | | + + + + + + + + | Cognitive Status | Response | Date of Assessment | + + + + | Because of a physical, mental, or emotional | Yes | 05/16/2015 | | condition, do you have serious difficulty | | | | concentrating, remembering, or making | | | | decisions? (5 years old or older) | | | + + + + as of this encounter Discharge Instructions The following attachments cannot be sent through Care Everywhere.Lower Extremity Contusion (Gambian)ERVIN (Gambian)in this encounter Medications at Time of Discharge + + + +---------+ + + | Medication | Sig. | Disp. | Refills | Start | End Date | | | | | | Date | | + + + +---------+ + + | acetaminophen | Take 1-2 tablets by | 30 | 0 | 08/24/19 | | | (TYLENOL) 325 mg | mouth every 6 hours | tablet | | 18 | | | tablet | as needed for Pain. | | | | | + + + +---------+ + + | acetaminophen | Take 2 tablets by | 60 | 0 | 07/23/19 | | | (TYLENOL) 500 mg | mouth every 6 hours | tablet | | 18 | | | tablet | as needed for Pain. | | | | | + + + +---------+ + + | acetaminophen | Take 500 mg by mouth | | | | | | (TYLENOL) 500 mg | every 6 hours as | | | | | | tablet | needed for Pain. | | | | | + + + +---------+ + + | albuterol 90 | Inhale 2 puffs into | 1 | 0 | 07/02/19 | | | mcg/puff inhaler | the lungs every 6 | Inhaler | | 18 | | | | hours as needed for | | | | | | | Wheezing. | | | | | + + + +---------+ + + | ALPRAZolam (XANAX) | Take 1 tablet by | 14 | 0 | 08/24/19 | | | 0.5 mg tablet | mouth Twice daily | tablet | | 18 | | | | as needed for | | | | | | | Anxiety. | | | | | + + + +---------+ + + | ascorbic acid | Take 500 mg by mouth | | | | | | (VITAMIN C) 500 mg | Daily. | | | | | | chewable tablet | | | | | | + + + +---------+ + + | EPINEPHrine | Inject 0.3 mLs into | 1 each | 0 | 06/02/19 | | | auto-injector 0.3 | the muscle as needed | | | 18 | | | mg/0.3 mL injection | for Anaphylaxis. | | | | | + + + +---------+ + + | gabapentin | Take 1 capsule by | 30 | 0 | 08/21/19 | | | (NEURONTIN) 300 mg | mouth nightly. | capsule | | 18 | | | capsule | | | | | | + + + +---------+ + + | ibuprofen | Take 600 mg by mouth | | | | | | (ADVIL,MOTRIN) 600 | every 6 hours as | | | | | | MG tablet | needed for Pain. | | | | | + + + +---------+ + + | lamoTRIgine | Take 200 mg by mouth | | | | | | (LAMICTAL) 100 mg | Daily. | | | | | | tablet | | | | | | + + + +---------+ + + | | Inhale 2 puffs into | | | 12/11/19 | | | mometasone-formotero | the lungs. | | | 17 | | | l (SAMRA) 100-5 | | | | | | | mcg/puff inhaler | | | | | | + + + +---------+ + + as of this encounter Plan of Treatment + +--------+ + + | Name | Priori | Associated Diagnoses | Date/Time | | | ty | | | + +--------+ + + | ED INFORMATION EXCHANGE | Routin | | 08/25/2017 1217 PDT | | | e | | | + +--------+ + + as of this encounter Procedures + +--------+ + + + | Procedure Name | Priori | Date/Time | Associated Diagnosis | Comments | | | ty | | | | + +--------+ + + + | XR KNEE RIGHT 1 - 2 | STAT | 08/25/2017 | | Results for this | | VW | | 1341 PDT | | procedure are in the | | | | | | results section. | + +--------+ + + + | ED INFORMATION | Routin | 08/25/2017 | | | | EXCHANGE | e | 1217 PDT | | | + +--------+ + [...] | | | A | | | [id number] | | | [id number] | | | This | | | [...] | | | St. | | | [place] | | | y | | | [...] | | | St. | | | [place] | | | y | | | [...] | | | Dates | | | BLISS | | | , | | | [...] | | | Joce | | | [place] | | | Refer | | | [...] | [email or web address] | | | | +---+--------+ in this encounter Results XR Knee Right 1 - 2 [...] + + | Ivon, Rad Results In 08/25/2017 1737 PDT CLINICAL INFORMATION: KNEE PROBLEM. [...] | | | Dictated and Signed by: rAmando Flores MD | | Electronically signed: 08/25/2017 5:34 PM | + + + +---------+ + + | Performing | Address | City/State/Zipcode | Phone Number | | Organization | | | | + +---------+ + + | [facility] | | | | + +---------+ + + in this encounter Visit Diagnoses + + | Diagnosis | + + | Traumatic ecchymosis of right knee, initial encounter - Primary | + +"
--- OUTSIDE RECORDS SUMMARY | 2017-10-07 01:06 | XMS | Encounter Summary ---
Demographics + + + | Address | General Delivery | | | [place] [address] | + + + | Home Phone | | + + + | Preferred Language | Unknown | + + + | Marital Status | Single | + + + | Restorationism Affiliation | Unknown | + + + | Race | Unknown | + + + | Ethnic Group | Unknown | + + + Author + + + | Author | [facility] | | | and [place] | + + + | Organization | [facility] | | | [...] Team Providers + +------+ + | Care Paint Sprayer Sandblaster Name | Role | Phone | + +------+ + | No, Physician | PCP | Unavailable | + +------+ + Reason for Visit + + + | Reason | Comments | + + + | Laceration | | + + + | Self Mutilation | | + + + Encounter Details +--------+ + + + + | Date | Type | Department | Care Team | Description | +--------+ + + + + | 08/23/ | Emergency | [facility] | Kedar Harper | Self-inflicted | | 2018 | | [facility] | Jack Murrieta MD | injury (Primary Dx); | | | | CENTER [address] | [address] | Multiple | | | | [place], [place] | [place], [place] | lacerations | | | | [address] | [address] | | | | | [phone] | | | +--------+ + + + [...] + + + | Blood Pressure | 142/99 | 08/23/20171543 PDT | + + + + | Pulse | 86 | 08/23/20171543 PDT | + + + + | Temperature | 37.2 C (98.9 F) | 08/23/20171543 PDT | + + + + | Respiratory Rate | 20 | 08/23/20171543 PDT | + + + + | Oxygen Saturation | 98% | 08/23/20171543 PDT | + + + + | Inhaled Oxygen | - | - | | Concentration | | | + + + + | Weight | 84 kg (185 lb 3 oz) | 08/23/20171543 PDT | + + + + | Height | - | - | + + + + | Body Mass Index | 30.82 | 08/23/20171543 PDT | + + + + in [...] + as of this encounter Discharge Instructions Kedar Harper MD - . Please follow the safety plan as discussed w ith the crisis response unit counselor 2. Do not drink alcohol or use drugs 3. Call [facility] at [phone] or return to the ER if you feel suicidal, homicidal o r unsafe [facility] has walk-in intake hours at their main office at [address] [place] [address]. They have two appointments at 8:30am and two at 10:00am. You must be there 30 minutes prio r to that to complete paperwork. in this encounter Medications at Time of Discharge [...] | | 17 | | | l (DULERA) 100-5 | | | | | | | mcg/puff inhaler | | | | | | + + + +---------+ + + as of this encounter Plan of Treatment + +--------+ + + | Name | Priori | Associated Diagnoses | Date/Time | | | ty | | | + +--------+ + + | ED INFORMATION EXCHANGE | Routin | | 08/23/2017 1536 PDT | | | e | | | + +--------+ + + as of this encounter Procedures + +--------+ + + + | Procedure Name | Priori | Date/Time | Associated Diagnosis | Comments | | | ty | | | | + +--------+ + + + | XR CHEST AP PORTABLE | STAT | 08/23/2017 | | Results for this | | | | 1721 PDT | | procedure are in the | | | | | | results section. | + +--------+ + + + | ED INFORMATION | Routin | 08/23/2017 | | | | EXCHANGE | e | 1536 PDT | | | + +--------+ + + + +---+--------+ | | | | | Proced | | | ure | | | Note - | | | Ivon, | | | Lab In | | | | | | [facility] | | | n - | | | 08/23/ | | | 2018 | | | 1537 | | | [...] | | | A | | | [id number] | | | [id number] | | | This | | | [...] | | | St. | | | [facility] | | | y | | | [facility] | | | alLast | | | | | | Update | | | d: | | | 09/17/16 | | | 5:02 | | | [...] | | | St. | | | [facility] | | | y | | | [...] | | | (HCC)8 | | | /4/201 | | | 5Drug | | | addict | | | ion | | | (HCC)8 | | | /4/201 | | | 5Seizu | | | [...] | +---+--------+ in this encounter Results XR Chest AP Portable (08/23/2017 1721) + [...] + | Diagnosis | + + | Self-inflicted injury - Primary | + + | Multiple lacerations | + + | Open wound(s) (multiple) of unspecified site(s), without mention of complication | + + Administered Medications + +--------+ +--------+------+------+ | Medication Order | MAR | Action | Dose | Rate | Site | | | Action | Date | | | | + +--------+ +--------+------+------+ | acetaminophen (TYLENOL) tablet | Given | | 650 mg | | | | 650 mg 650 mg, Oral, ONCE, Fri | | 8 17:22 | | | | | 08/23/17 at 1645, For 1 dose | | PDT | | | | + +--------+ +--------+------+------+ +---+---+ | | | +---+---+ + +-------+ + +---+---+ | bacitracin topical ointment | Given | | 10 | | | | Topical, ONCE, 08/23/17 at | | 8 17:34 | Applicat | | | | 1730, For 1 dose | | PDT | ion | | | + +-------+ + +---+---+ +---+---+ | | | +---+---+ in this encounter"
--- OUTSIDE RECORDS SUMMARY | 2017-10-07 01:06 | XMS | Encounter Summary ---
Demographics + + + | Address | General Delivery | | | [place] [address] | + + + | Home Phone | | + + + | Preferred Language | Unknown | + + + | Marital Status | Single | + + + | Anabaptist Affiliation | Unknown | + + + | Race | Unknown | + + + | Ethnic Group | Unknown | + + + Author + + + | Author | [facility] | | | and [place] | + + + | Organization | [facility] | | | [...] Team Providers + +------+ + | Care Check Examiner Name | Role | Phone | + +------+ + | No, Physician | PCP | Unavailable | + +------+ + Reason for Visit +---------+ + | Reason | Comments | +---------+ + | Otalgia | | +---------+ + Encounter Details +--------+ + + + + | Date | Type | Department | Care Team | Description | +--------+ + + + + | 09/24/ | Emergency | [facility] | Izaiah Luis Alfredo Partida, | Mastoiditis, | | 2018 | | [facility] | MD [address] | unspecified | | | | CENTER [address] | [place] | laterality (Primary | | | | [place] | [address] | Dx) | | | | [address] | | | | | | [phone] | | | +--------+ + + + [...] + + + + | Weight | - | - | + + + + | Height | 165.1 cm (5' 5") | 09/24/2017 1548 PDT | + + + + | Body Mass Index | - | - | + + + + in this [...] + + + as of this encounter Medications at Time of Discharge [...] + + +---------+ + + | | Take 1 tablet by | | | | | | amoxicillin-clavulan | mouth 2 times daily. | | | | | | ate (AUGMENTIN) | | | [...] + + + +---------+ + + | clindamycin | Take 1 capsule by | 56 | 0 | 09/25/19 | | | (CLEOCIN) 300 MG | mouth 4 times daily | capsule | | 18 | 8 | | capsule | for 14 days. | | | | | + + [...] Inhale 2 puffs into | | | 10/30/20 | | | mometasone-formotero | the lungs. [...] ED INFORMATION EXCHANGE | Routin | | 09/24/2017 1527 PDT | | | e | | [...] | | n - | | | 08/14/ | | | 2018 | | | 1528 | | | [...] | | | A | | | [id number] | | | [id number] | | | This | | | [...] | | | St. | | | [place] | | | y | | | [...] | | | St. | | | [place] | | | y H. | | [...] | | | St. | | | [place] | | | y | | | [...] | | | +---+--------+ in this encounter Visit Diagnoses + + | Diagnosis | + + | Mastoiditis, unspecified laterality - Primary | + +
--- OUTSIDE RECORDS SUMMARY | 2017-10-07 01:06 | XMS | Encounter Summary ---
Demographics + + + | Address | General Delivery | | | [place] [address] | + + + | Home Phone | | + + + | Preferred Language | Unknown | + + + | Marital Status | Single | + + + | Hindu Affiliation | Unknown | + + + | Race | Unknown | + + + | Ethnic Group | Unknown | + + + Author + + + | Author | [facility] | | | and [place] | + + + | Organization | [facility] | | | and [...] Team Providers + +------+ + | Care Port Cdl A Driver Name | Role | Phone | + +------+ + | No, Physician | PCP | Unavailable | + +------+ + Reason for Visit + + + | Reason | Comments | + + + | Self Mutilation | | + + + Encounter Details +--------+ + + + + | Date | Type | Department | Care Team | Description | +--------+ + + + + | 08/24/ | Emergency | [facility] | [facility] | Anxiety (Primary | | 2018 | | [facility] | MD Kedar [address] | Dx); Multiple | | | | CENTER [address] | [address] [place] | abrasions | | | | [place], [place] | [place] [address] | | | | | [address] | [phone] | | | | | [phone] | | | +--------+ + + + [...] + + + | Blood Pressure | 123/89 | 08/24/201721 PDT | + + + + | Pulse | 119 | 08/24/201721 PDT | + + + + | Temperature | 37.1 C (98.7 F) | 08/24/201720 PDT | + + + + | Respiratory Rate | 24 | 08/24/201721 PDT | + + + + | Oxygen Saturation | 97% | 08/24/201721 PDT | + + + + | Inhaled Oxygen | - | - | | Concentration | | | + + + + | Weight | 84 kg (185 lb 3 oz) | 08/24/201719 PDT | + + + + | Height | 165.1 cm (5' 5") | 08/24/201719 PDT | + + + + | Body Mass Index | 30.82 | 08/24/201719 PDT | + + + + in [...] following attachments cannot be sent through Care Everywhere.Anxiety Disorders, Kayla tate, with Therapy (Sami)in this encounter Medications at Time of Discharge [...] ED INFORMATION EXCHANGE | Routin | | 08/24/2017 0017 PDT | | | e | | | + +--------+ + + as of this encounter Procedures + +--------+ + + + | Procedure Name | Priori | Date/Time | Associated Diagnosis | Comments | | | ty | | | | + +--------+ + + + | ED INFORMATION | Routin | 08/24/2017 | | | | EXCHANGE | e | 0017 PDT | | | + +--------+ + + + +---+--------+ | | | | | Proced | | | ure | | | Note - | | | Ivon, | | | Lab In | | | | | | Hlseve | | | n - | | | | | | 2017 | | | 0018 | | | [...] | | | A | | | [id number] | | | [id number] | | | This | | | [...] | | | St. | | | [place] | | | y | | | [...] | | | St. | | | [place] | | | y | | | [...] | | | eral02 | | | /0210 | | | radica | | | [...] + | Diagnosis | + + | Anxiety - Primary | + + | Anxiety state, unspecified | + + | Multiple abrasions | + + | Abrasion or friction burn of other, multiple, and unspecified sites, without mention | | of infection | + +
--- OUTSIDE RECORDS SUMMARY | 2017-10-07 01:07 | XMS | Clinical Summary ---
Demographics + + + | Address | General Delivery | | | [place] [address] | + + + | Home Phone | | + + + | Preferred Language | Unknown | + + + | Marital Status | Single | + + + | Jainism Affiliation | Unknown | + + + | Race | Unknown | + + + | Ethnic Group | Unknown | + + + Author + + + | Author | [facility] | | | and [place] | + + + | Organization | [facility] | | | [...] Team Providers + +------+ + | Care Rib Trim Separator Name | Role | Phone | + [...] + | Ovarian cancer | Sister | Ysura | | + + + + + [...] | | | A | | | [id number] | | | [id number] | | | This | | | [...] | | | St. | | | [place] | | | y | | | [...] | | | St. | | | [place] | | | y H. | | [...] | | | St. | | | [place] | | | y | | | [...] | | | A | | | [id number] | | | [id number] | | | This | | | [...] | | | St. | | | [place] | | | y | | | [...] | | | St. | | | [place] | | | y | | | [...] | | | A | | | [id number] | | | [id number] | | | This | | | [...] | | | St. | | | [place] | | | y | | | [...] | | | St. | | | [place] | | | y | | | [...] | | | A | | | [id number] | | | [id number] | | | This | | | [...] | | | St. | | | [place] | | | y | | | [...] | | | St. | | | [place] | | | y | | | [...] | | | A | | | [id number] | | | [phone] | | | This | | | [...] | | | St. | | | [place] | | | y | | | [...] | | | St. | | | [place] | | | y | | | [...] | [employer] | [place] | [id number] | Medica | | | | | [...] | | al/Fam | | 1975 | [phone] | [place] | | | vijaya | | | [phone] | [phone] | + +--------+ +--------+ + + | KEMAL PATHAK | Mental | Self | [birth year] | Home: | NEED ADDRESS | | | | | 1976 | [phone] | [place] [address] | | | Health | | | [phone] | | + +--------+ +--------+ + +
--- OUTSIDE RECORDS SUMMARY | 2017-10-07 01:07 | XMS | Encounter Summary ---
Demographics + + + | Address | General Delivery | | | [place] [address] | + + + | Home Phone | | + + + | Preferred Language | Unknown | + + + | Marital Status | Single | + + + | Confucianism Affiliation | Unknown | + + + | Race | Unknown | + + + | Ethnic Group | Unknown | + + + Author + + + | Author | [facility] | | | and [place] | + + + | Organization | [facility] | | | [...] Team Providers + +------+ + | Care Wetlands Conservation Laborer Name | Role | Phone | + +------+ + | No, Physician | PCP | Unavailable | + +------+ + Reason for Visit + + + | Reason | Comments | + + + | Pharyngitis | RM4; bilateral otalgia, sinus pressure x 2 weeks | + + + Encounter Details +--------+---------+ + + + | Date | Type | Department | Care Team | Description | +--------+---------+ + + + | 07/13/ | Office | [facility] | Oscar Bolden, | Maxillary sinusitis, | | 2018 | Visit | CARE [address] | [address] | unspecified | | | | [place] | [place] | chronicity (Primary | | | | [phone] | [address] | Dx); Bilateral | | | | [phone] | | otitis media, | | | | | | unspecified otitis | | | | | | media type | +--------+---------+ + + + Social History + + [...] + + + | Blood Pressure | 131/82 | 07/13/2017 1404 PDT | + + + + | Pulse | 79 | 07/13/2017 1404 PDT | + + + + | Temperature | 36.3 C (97.4 F) | 07/13/20174 PDT | + + + + | Respiratory Rate | 20 | 07/13/20174 PDT | + + + + | Oxygen Saturation | 98% | 07/13/20171403 PDT | + + + + | Inhaled Oxygen | - | - | | Concentration | | | + + + + | Weight | - | - | + + + + | Height | 165.1 cm (5' 5") | 07/13/20174 PDT | + + + + | [...] + + + as of this encounter Instructions Patient Instructions - Oscar Bolden MD - 07/13/2017 1400 PDTGet adequate rest and wate r. Take the Keflex as directed. Recheck as needed.in this encounter Progress Notes Oscar Bolden MD - 07/13/2017 1400 PDTFormatting of this note may be different from the original. Subjective: Patient ID: Elayne Griffith is a 42 y.o. female. HPI Patient's medications, allergies, past medical, surgical, social and family histories were obtained and reviewed as appropriate. This lady came in because of several days of sinus pressure pain and both the ears hurting. She was here about 12 days ago and diagnosed with bronchitis and treated with a Zithromax Z-WILLIAMS. She said she got a little better for a time and then started getting worse again. T his time now it's mainly in the sinuses in the ears. She has no other complaint. Review of Systems Constitutional: Negative. HENT: Positive for congestion, ear pain and sinus pain. Respiratory: Positive for cough. Cardiovascular: Negative. Gastrointestinal: Negative. Objective: BP 131/82 | Pulse 79 | Temp 36.3 C (97.4 F) (Temporal) | Resp 20 | Ht 1.651 m (5' 5 ") | LMP 07/06/2017 (Exact Date) | SpO2 98% | ? No Physical Exam Constitutional: She is oriented to person, place, and time. She appears well-developed and well-nourished. No distress. HENT: Head: Normocephalic. Mouth/Throat: Oropharynx is clear and moist. Mild to moderate nasal congestion. Mild to moderate tenderness to pressure over the maxill carlitos sinuses. Both TMs are red and inflamed the right looked worse than the left. Eyes: Conjunctivae are normal. Pupils are equal, round, and reactive to light. Neck: Normal range of motion. Cardiovascular: Normal rate, regular rhythm and normal heart sounds. Pulmonary/Chest: Effort normal and breath sounds normal. Musculoskeletal: Normal gait and balance Lymphadenopathy: She has no cervical adenopathy. Neurological: She is alert and oriented to person, place, and time. Vitals reviewed. Assessment: 1. Maxillary sinusitis, unspecified chronicity 2. Bilateral otitis media, unspecified otitis media type Plan: Please see the AVS for the plan unless outlined elsewhere. She cannot take penicillin but she can take Keflex. I will give her Keflex 500 mg 1 4 time s a day #28. Rest and push fluids. Recheck as needed. She had no questions. in this encounter Plan of Treatment Not on fileas of this encounter Visit Diagnoses + + | Diagnosis | + + | Maxillary sinusitis, unspecified chronicity - Primary | + + | Bilateral otitis media, unspecified otitis media type | + +
--- OUTSIDE RECORDS SUMMARY | 2017-10-07 01:07 | XMS | Encounter Summary ---
Demographics + + + | Address | General Delivery | | | [place] [address] | + + + | Home Phone | | + + + | Preferred Language | Unknown | + + + | Marital Status | Single | + + + | Islam Affiliation | Unknown | + + + | Race | Unknown | + + + | Ethnic Group | Unknown | + + + Author + + + | Author | [facility] | | | and [place] | + + + | Organization | [facility] | | | [...] Team Providers + +------+ + | Care Malted Milk Mixer Name | Role | Phone | + [...] | | | | CENTER [address] | [address] [place] | abrasions | | | | [place], [place] | [place] [address] | | | | | [address] | [phone] | | | | | [phone] | | | +--------+ + + + [...] Care Everywhere.Anxiety Disorders, Kayla tate, with Therapy (Mongolian)in this encounter Medications at Time of Discharge [...] | | | A | | | [id number] | | | [id number] | | | This | | | [...] | | | St. | | | [place] | | | y | | | [...] | | | St. | | | [place] | | | y | | | [...]
--- OUTSIDE RECORDS SUMMARY | 2017-10-07 01:07 | XMS | Encounter Summary ---
Demographics + + + | Address | General Delivery | | | [place] [address] | + + + | Home Phone | | + + + | Preferred Language | Unknown | + + + | Marital Status | Single | + + + | Taoist Affiliation | Unknown | + + + | Race | Unknown | + + + | Ethnic Group | Unknown | + + + Author + + + | Author | [facility] | | | and [place] | + + + | Organization | [facility] | | | [...] Team Providers + +------+ + | Care Leather Stretcher Name | Role | Phone | + +------+ + | No, Physician | PCP | Unavailable | + +------+ + Reason for Visit + + + | Reason | Comments | + + + | Insect Bite | PRO RM B- possible spider bite to left arm X 2 days | + + + Encounter Details +--------+---------+ + + + | Date | Type | Department | Care Team | Description | +--------+---------+ + + + | 08/20/ | Office | [facility] | Tiffany Gonzalez, | Tendonitis (Primary | | 2018 | Visit | CARE [address] | MD [address] | Dx) | | | | [place] | [place] | | | | | [address] | [address] | | | | | [phone] | | | +--------+---------+ + + + Social History [...] + + + | Blood Pressure | 129/84 | 08/20/20171803 PDT | + + + + | Pulse | 77 | 08/20/20171803 PDT | + + + + | Temperature | 36.6 C (97.9 F) | 08/20/20171803 PDT | + + + + | Respiratory Rate | 18 | 08/20/20171803 PDT | + + + + | Oxygen Saturation | 99% | 08/20/20171803 PDT | + + + + | Inhaled Oxygen | - | - | | Concentration | | | + + + + | Weight | 84.4 kg (186 lb) | 08/20/20171803 PDT | + + + + | Height | 165.1 cm (5' 5") | 08/20/20171803 PDT | + + + + | Body Mass Index | 30.95 | 08/20/20171803 PDT | + + + + in [...] of this encounter Instructions Patient Instructions - Tiffany Gonzalez MD - 08/20/2017 1800 PDT Treating De Quervain Tenosynovitis The goal of your treatment is to relieve your pain and allow you to use your thumb again. T reatment will depend on how severe the pain is. Nonsurgical Treatment Just taking a break from the activities that caused your pain may be enough. Yourhealthca reprovidermay also have you take oral nonsteroidal, anti-inflammatory medicine (NSAIDs), such as ibuprofen, or wear a splint for a few weeks to rest the thumb and wrist. To reduce the swelling, yourhealthcare providermay inject an anti-inflammatory medicine, such as c ortisone, around the tendons. You may have more pain at first, but in a few days your thumb should feel better. Surgery If other kinds of treatment don t relieve your pain, or if the pain is severe, [facility] recommend surgery. The sheath that surrounds the tendons is released so the tendons can move more easily. This helps reduce the inflammation, and allows you to str aighten your thumb without pain. Usually, surgery takes a few minutes and is done with local anesthetic, so you can go home the same day. You will probably have a splint or dressing on your wrist for a few days while the tissue heals. Yourhealthcare providerwill discuss t he risks and possible complications of surgery with you. Date Last Reviewed: 11/07/201419990943-4987 [employer] [address] [place] [address]. All righ ts reserved. This information is not intended as a substitute for professional medical care. Always follow your healthcare professional's instructions. in this encounter Progress Notes Tiffany Gonzalez MD - 08/20/2017 1800 PDTFormatting of this note may be different from the original. Subjective: Chief Complaint: Insect Bite (PRO RM B- possible spider bite to left arm X 2 days ) History of Present Illness: Elayne is a 42 y.o. female who comes in with her significant other complaining of thinking she has some bites on her left arm. She has a little bit of swelling around large scar she has on the left forearm and her thumb hurts to move it. Somehow she equates this to bug bi winifred. She says she hasn't seen any bugs bite her. No recent injuries to the left hand. Rupali reeves would like a refill of her gabapentin. No other complaints. Patient's medications, allergies, past medical, surgical, social and family histories were reviewed and updated as appropriate. ROS: see HPI Objective: BP 129/84 | Pulse 77 | Temp 36.6 C (97.9 F) (Temporal) | Resp 18 | Ht 1.651 m (5' 5 ") | Wt 84.4 kg (186 lb) | SpO2 99% | BMI 30.95 kg/m General Appearance: Alert, cooperative, no distress, appears stated age Patient has a oblique scar that goes over the left forearm and she has some symmetric lumps on both sides of the abdomen appear to be the muscle extensors and she has a positive Lizette lstein's test. There is no erythema of the scan no excoriation and no scabs visible. Assessment and Plans: 1. Tendonitis Patient appears to have a de Quervain's tendinitis of the left thumb. I put her in a thumb spica splint and gave her directions on how and when when to use it. Continue ice and ibuprofen and Tylenol I refilled her gabapentin at 300 mg nightly #30 no refills Follow-up with psychiatry for the gabapentin Follow-up here in 2 weeks regarding the thumb. This note was dictated using [employer] voice recognition software. Occasional wrong- word or s ound-alike substitutions may have occurred due to the inherent limitations of voice recognit ion software. Please read the chart carefully and recognize, using context, where these subs titutions have occurred. Mackenzie Menjivar, RN - 08/20/2017 1800 PDTAfter verifying identity, patient is fitted with s ize medium left thumb spica splint and understands [facility]REG will bill insurance for splint. Amirah Menjivar in this encounter Plan of Treatment Not on fileas of this encounter Visit Diagnoses + + | Diagnosis | + + | Tendonitis - Primary | + + | Enthesopathy of unspecified site | + +
--- OUTSIDE RECORDS SUMMARY | 2017-10-07 01:07 | XMS | Encounter Summary ---
Demographics + + + | Address | General Delivery | | | [place] [address] | + + + | Home Phone | | + + + | Preferred Language | Unknown | + + + | Marital Status | Single | + + + | Rastafari Affiliation | Unknown | + + + | Race | Unknown | + + + | Ethnic Group | Unknown | + + + Author + + + | Author | [facility] | | | and [place] | + + + | Organization | [facility] | | | and [place] | + + + | Address | Unknown | + + + | Phone | Unavailable | + + + Support + + +---------+ + | Name | Relationship | Address | Phone | + + +---------+ + | Gabino cM | ECON | Unknown | | + + +---------+ + Care Team Providers + +------+ + | Care Group Fitness Manager Name | Role | Phone | + [...] | | [place] | [place] | chronicity (Primary | | | | [address] | [address] | Dx); Bilateral | | | | [phone] | | otitis media, | | | [...]
--- OUTSIDE RECORDS SUMMARY | 2017-10-07 01:07 | XMS | Encounter Summary ---
Demographics + + + | Address | General Delivery | | | [place] [address] | + + + | Home Phone | | + + + | Preferred Language | Unknown | + + + | Marital Status | Single | + + + | Restorationist Affiliation | Unknown | + + + | Race | Unknown | + + + | Ethnic Group | Unknown | + + + Author + + + | Author | [facility] | | | and [place] | + + + | Organization | [facility] | | | [...] Team Providers + +------+ + | Care Door Trimmer Name | Role | Phone | + +------+ + | No, Physician | PCP | Unavailable | + +------+ + Reason for Visit + + + | Reason | Comments | + + + | Back Pain | | + + + Encounter Details +--------+ + + + + | Date | Type | Department | Care Team | Description | +--------+ + + + + | 07/22/ | Emergency | [facility] | Kedar Harper | Sciatica of left | | 2018 | | [facility] | Jack Murrieta MD | side (Primary Dx) | | | | CENTER [address] | [address] | | | | | [place], [place] | [place], [place] | | | | | [address] | [address] | | | | | [phone] | | | +--------+ + + + [...] + + + | Blood Pressure | 131/83 | 07/22/20172111 PDT | + + + + | Pulse | 78 | 07/22/20172111 PDT | + + + + | Temperature | 36.3 C (97.3 F) | 07/22/20172111 PDT | + + + + | Respiratory Rate | 12 | 07/22/20172111 PDT | + + + + | Oxygen Saturation | 99% | 07/22/20172111 PDT | + + + + | [...] encounter Discharge Instructions Kedar Harper MD - 07/22/2017Return for severe worsening pain. Alternate ic e off and on. Please follow-up with your primary care physician.in this encounter Medications at Time of Discharge [...] into | 1 each | 0 | 04/21/20 | | | auto-injector 0.3 | the [...] + + | gabapentin | Take 1 tablet by | 20 | PRN | 07/02/19 | | | (NEURONTIN) 600 MG | mouth 4 times daily. | tablet | | 18 | 8 | | tablet | | | | | | + + + +---------+ + + as of this encounter Plan of Treatment + +--------+ + + | Name | Priori | Associated Diagnoses | Date/Time | | | ty | | | + +--------+ + + | ED INFORMATION EXCHANGE | Routin | | 07/22/20172057 PDT | | | e | | | + +--------+ + + as of this encounter Procedures + +--------+ + + + | Procedure Name | Priori | Date/Time | Associated Diagnosis | Comments | | | ty | | | | + +--------+ + + + | ED INFORMATION | Routin | 07/22/2017 | | | | EXCHANGE | e | 2057 PDT | | | + +--------+ + + + +---+--------+ | | | | | Proced | | | ure | | | Note - | | | Ivon, | | | Lab In | | | | | | Hlseve | | | n - | | | | | | 2017 | | | 2058 | | | PDT | | | [...] | | | A | | | [id number] | | | [id number] | | | This | | | [...] | | | Guidel | | | lsim | | | [facility] | | [facility] [place] | | | y | | | [...] | | | St. | | | [place] | | | y | | | [...] | | | ateral | | | 02/ | | | 10vent | | | [...] + | Diagnosis | + + | Sciatica of left side - Primary | + + | Sciatica | + + Administered Medications + +--------+ +-------+------+ + | Medication Order | MAR | Action | Dose | Rate | Site | | | Action | Date | | | | + +--------+ +-------+------+ + | ketorolac (TORADOL) injection | Given | | 60 mg | | Ventrogl | | 60 mg 60 mg, Intramuscular, | | 8 21:33 | | | uteal-Ri | | ONCE, 07/22/17 at 2125, For 1 | | PDT | | | ght | | dose | | | | | | + +--------+ +-------+------+ + +---+---+ | | | +---+---+ in this encounter"
--- OUTSIDE RECORDS SUMMARY | 2017-10-07 01:07 | XMS | Encounter Summary ---
Demographics + + + | Address | General Delivery | | | [place] [address] | + + + | Home Phone | | + + + | Preferred Language | Unknown | + + + | Marital Status | Single | + + + | Orthodox Affiliation | Unknown | + + + | Race | Unknown | + + + | Ethnic Group | Unknown | + + + Author + + + | Author | [facility] | | | and [place] | + + + | Organization | [facility] | | | [...] Team Providers + +------+ + | Care Journeyman Sheet Metal Worker Name | Role | Phone | + [...] + + | 09/24/ | Emergency | [facility] | Izaiah Luis Alfredo Partida, | Mastoiditis, | | 2018 | | [facility] | MD [address] | unspecified | | | | CENTER [address] | [place] | laterality (Primary | | | | [place] | [address] | Dx) | | | | [address] | | | | | | [phone] | | | +--------+ + + + [...] | | | A | | | [id number] | | | [id number] | | | This | | | [...] | | | St. | | | [place] | | | y | | | [...] | | | St. | | | [place] | | | y H. | | [...] | | | St. | | | [place] | | | y | | | [...]
--- OUTSIDE RECORDS SUMMARY | 2017-10-07 01:07 | XMS | Encounter Summary ---
Demographics + + + | Address | General Delivery | | | [place] [address] | + + + | Home Phone | | + + + | Preferred Language | Unknown | + + + | Marital Status | Single | + + + | Orthodoxy Affiliation | Unknown | + + + | Race | Unknown | + + + | Ethnic Group | Unknown | + + + Author + + + | Author | [facility] | | | and [place] | + + + | Organization | [facility] | | | [...] Team Providers + +------+ + | Care Edge Banding Off Bearer Name | Role | Phone | + [...] | | | | CENTER [address] | [address] | | | | | [place], [place] | [place], [place] | | | | | [address] | [address] | | | | | [phone] | | | +--------+ + + + [...] | | | A | | | [id number] | | | [id number] | | | This | | | [...] | | | St. | | | [place] | | | y | | | [...] | | | St. | | | [place] | | | y | | | [...]
--- OUTSIDE RECORDS SUMMARY | 2017-10-07 01:07 | XMS | Encounter Summary ---
Demographics + + + | Address | General Delivery | | | [place] [address] | + + + | Home Phone [...] + + + | Author | [facility] | | | and [place] | + + + | Organization | [facility] | | [...] Team Providers + +------+ + | Care Procurement Representative Name | Role | Phone | + [...] | | | | CENTER [address] | [place] | initial encounter | | | | [place] | [address] | (Primary Dx) | | | | [address] | | | | | | [phone] | | | +--------+ + + + [...] be sent through Care Everywhere.Lower Extremity Contusion (Norwegian)ERVIN (Norwegian)in this encounter Medications at Time of Discharge [...] | | | A | | | [id number] | | | [id number] | | | This | | | [...] | | | St. | | | [place] | | | y | | | [...] | | | St. | | | [place] | | | y | | | [...]
--- OUTSIDE RECORDS SUMMARY | 2017-10-07 01:07 | XMS | Encounter Summary ---
Demographics + + + | Address | General Delivery | | | [place] [address] | + + + | Home Phone | | + + + | Preferred Language | Unknown | + + + | Marital Status | Single | + + + | Alevism Affiliation | Unknown | + + + | Race | Unknown | + + + | Ethnic Group | Unknown | + + + Author + + + | Author | [facility] | | | and [place] | + + + | Organization | [facility] | | | [...] Team Providers + +------+ + | Care Tile Machine Operator Name | Role | Phone | + [...] + + | 08/20/ | Office | [facility] | Tiffany Gonzalez, | Tendonitis (Primary | | 2018 | Visit | CARE [address] | MD [address] | Dx) | | | | [place] | [place] | | | | | [address] | [address] | | | | | [phone] | | | +--------+---------+ + + + [...] or if the pain is severe, [facility] provid[facility]ay recommend surgery. The sheath that surrounds [...] of surgery with you. Date Last Reviewed: 11/07/201419993565-3608 [employer] [address] [place] [address]. All righ ts reserved. This information is [...] the thumb. This note was dictated using [employer] voice recognition software. Occasional wrong- word or [...]
--- OUTSIDE RECORDS SUMMARY | 2017-10-07 01:07 | XMS | Encounter Summary ---
Demographics + + + | Address | General Delivery | | | [place] [address] | + + + | Home Phone | | + + + | Preferred Language | Unknown | + + + | Marital Status | Single | + + + | Christian Affiliation | Unknown | + + + | Race | Unknown | + + + | Ethnic Group | Unknown | + + + Author + + + | Author | [facility] | | | and [place] | + + + | Organization | [facility] | | | [...] Team Providers + +------+ + | Care Card Table Attendant Name | Role | Phone | + [...] | | | | CENTER [address] | [address] | Multiple | | | | [place], [place] | [place], [place] | lacerations | | | | [address] | [address] | | | | | [phone] | | | +--------+ + + + [...] or use drugs 3. Call [facility] at [phone] or return to the ER if you feel suicidal, homicidal o r unsafe [facility] has walk-in intake hours at their main office at [address] [place] [address]. They have two appointments at 8:30am and [...] | | | A | | | [id number] | | | [id number] | | | This | | | [...] | | | St. | | | [place] | | | y | | | [...] | | | St. | | | [place] | | | y | | | [...]
[2017-10-07] MEDS ORDERED: AUGMENTIN 875-1 EACH PO (02:16)
== END 2017-10-07 02:32 | disposition home or self-care (01) ==
LOC: ED 20:53
DX: R22.0 Localized swelling, mass and lump, head (principal); F17.200 Nicotine dependence, unspecified, uncomplicated; Z88.8 Allergy status to other drugs, medicaments and biological substances; Z79.899 Other long term (current) drug therapy; Z79.82 Long term (current) use of aspirin
CPT/HCPCS: 70487; 80053; 85025; 96374; 96375; 99284; J0696; J1885; J2405; Q9967

== ENCOUNTER 2017-10-23 09:22 | Emergency (ER) | payer MEDICAID ==
[~2017-10-23] VITALS: Ht 165.1 cm; Wt 89.8 kg
[~2017-10-23 09:22] MED LIST changes: +ASPIRIN325 MG PO; +NEURONTIN300 MG PO; +TYLOPHEN500 MG PO
[2017-10-23] MEDS ORDERED: KEFLEX500 MG PO (10:58)
== END 2017-10-23 12:16 | disposition home or self-care (01) ==
LOC: ED 09:22
PROC: 0JQH3ZZ Repair Left Lower Arm Subcutaneous Tissue and Fascia, Percutaneous Approach (ICD-10-PCS; principal; 2017-10-23)
DX: S51.812A Laceration without foreign body of left forearm, initial encounter (principal); F32.9 Major depressive disorder, single episode, unspecified; F17.200 Nicotine dependence, unspecified, uncomplicated; Z88.8 Allergy status to other drugs, medicaments and biological substances; Z79.899 Other long term (current) drug therapy; Z79.82 Long term (current) use of aspirin; X78.8XXA Intentional self-harm by other sharp object, initial encounter
CPT/HCPCS: 12032; 99282

== ENCOUNTER 2017-10-26 17:20 | Emergency (ER) | payer MEDICAID ==
[~2017-10-26] VITALS: Ht 165.1 cm; Wt 89.8 kg
[2017-10-26] MEDS ORDERED: DESVENLAFAXINE50 M2 PO (17:35)
[2017-10-26] MEDS ORDERED: ATIVAN0.5 MG PO (17:35)
== END 2017-10-26 19:16 | disposition home or self-care (01) ==
LOC: ED 17:20
DX: S51.812D Laceration without foreign body of left forearm, subsequent encounter (principal); L08.9 Local infection of the skin and subcutaneous tissue, unspecified; F17.200 Nicotine dependence, unspecified, uncomplicated; Z88.8 Allergy status to other drugs, medicaments and biological substances; Z79.899 Other long term (current) drug therapy; Y33.XXXD Other specified events, undetermined intent, subsequent encounter
CPT/HCPCS: 99282

== ENCOUNTER 2017-10-31 00:37 | Emergency (ER) | payer MEDICAID ==
[~2017-10-31] VITALS: Ht 165.1 cm; Wt 89.8 kg
[~2017-10-31 00:37] MED LIST changes: +ATIVAN0.5 MG PO; +DESVENLAFAXINE50 M2 PO
== END 2017-10-31 02:04 | disposition home or self-care (01) ==
LOC: ED 00:37
DX: S51.812A Laceration without foreign body of left forearm, initial encounter (principal); S01.81XA Laceration without foreign body of other part of head, initial encounter; F17.200 Nicotine dependence, unspecified, uncomplicated; Z88.8 Allergy status to other drugs, medicaments and biological substances; Z88.4 Allergy status to anesthetic agent; Z79.82 Long term (current) use of aspirin; Z79.899 Other long term (current) drug therapy; Y33.XXXA Other specified events, undetermined intent, initial encounter
CPT/HCPCS: 99283

== ENCOUNTER 2017-11-02 13:40 | Emergency (ER) | payer MEDICAID ==
[~2017-11-02] VITALS: Ht 165.1 cm; Wt 89.8 kg
[2017-11-02] MEDS ORDERED: NORCO 5-325 TA1 EACH PO (15:17)
== END 2017-11-02 15:32 | disposition home or self-care (01) ==
LOC: ED 13:40
DX: S51.812A Laceration without foreign body of left forearm, initial encounter (principal); X78.9XXA Intentional self-harm by unspecified sharp object, initial encounter; F17.200 Nicotine dependence, unspecified, uncomplicated; Z88.8 Allergy status to other drugs, medicaments and biological substances; Z79.899 Other long term (current) drug therapy; Z79.82 Long term (current) use of aspirin
CPT/HCPCS: 99283

== ENCOUNTER 2019-05-10 19:17 | Emergency (ER) | payer MEDICAID ==
[~2019-05-10] VITALS: Ht 165.1 cm; Wt 95.7 kg
[~2019-05-10 19:17] MED LIST changes: +CENTANY30 GM TOP; +CLEOCIN HCL300 MG PO; +DULERA 100 MCG/13 GM INH; +EXCEDRIN MIGRA1 EAC2 PO; +KETOROLAC TROME10 MG PO; +PRISTIQ ER50 MG PO
== END 2019-05-11 00:31 | disposition home or self-care (01) ==
LOC: ED 19:17
PROC: 0YQJXZZ Repair Left Lower Leg, External Approach (ICD-10-PCS; principal; 2019-05-10)
DX: S81.812A Laceration without foreign body, left lower leg, initial encounter (principal); S61.512A Laceration without foreign body of left wrist, initial encounter; S30.811A Abrasion of abdominal wall, initial encounter; F32.9 Major depressive disorder, single episode, unspecified; F19.90 Other psychoactive substance use, unspecified, uncomplicated; F17.200 Nicotine dependence, unspecified, uncomplicated; Z90.49 Acquired absence of other specified parts of digestive tract; Z86.19 Personal history of other infectious and parasitic diseases; Z88.8 Allergy status to other drugs, medicaments and biological substances; Z79.899 Other long term (current) drug therapy; X78.9XXA Intentional self-harm by unspecified sharp object, initial encounter
CPT/HCPCS: 80053; 80176; 81001; 84443; 84703; 85025; 99284; G0480

== ENCOUNTER 2019-05-24 17:03 | Emergency (ER) | payer MEDICAID ==
[~2019-05-24] VITALS: Ht 165.1 cm; Wt 93.0 kg
[2019-05-24] MEDS ORDERED: GABAPENTIN600 MG PO (17:36)
[2019-05-24] MEDS ORDERED: BENADRYL25 MG PO (17:38)
[2019-05-24] MEDS ORDERED: OMEPRAZOLE20 MG PO (19:45)
== END 2019-05-24 19:55 | disposition home or self-care (01) ==
LOC: ED 17:03
DX: R10.11 Right upper quadrant pain (principal); M25.50 Pain in unspecified joint; F32.9 Major depressive disorder, single episode, unspecified; F17.200 Nicotine dependence, unspecified, uncomplicated; Z88.8 Allergy status to other drugs, medicaments and biological substances; Z79.899 Other long term (current) drug therapy
CPT/HCPCS: 74177; 80053; 81001; 83690; 84703; 85025; 99284-25; J2270; J2405; J7030; Q9967

== ENCOUNTER 2021-01-12 04:05 | Emergency (ER) | payer MEDICAID ==
[~2021-01-12] VITALS: Ht 165.1 cm; Wt 93.0 kg
--- NOTE | ~2021-01-12 | EKG ---
[facility] [address] [facility] [place], [place] [address] Draft EK completed, results pending confirmation PATIENT NAME: KEMAL HERRON QUINCY Electrocardiogram DATE OF : 75 PHYSICIAN: PRELIMINARY REPORT #: [id number] REPORT IS CONFIDENTIAL AND NOT TO BE RELEASED WITHOUT AUTHORIZATION
[~2021-01-12 04:05] MED LIST changes: +BENADRYL25 MG PO; +OMEPRAZOLE20 MG PO
[2021-01-12] MEDS ORDERED: BUPRENORPHINE HC8 MG PO (04:28)
[2021-01-12] MEDS ORDERED: KETOROLAC TROME10 MG PO (06:44)
[2021-01-12] MEDS ORDERED: ONDANSETRON ODT4 MG PO (06:44)
== END 2021-01-12 06:56 | disposition home or self-care (01) ==
LOC: ED 04:05
DX: K86.89 Other specified diseases of pancreas (principal); D64.9 Anemia, unspecified; R55 Syncope and collapse; R07.9 Chest pain, unspecified; F17.200 Nicotine dependence, unspecified, uncomplicated; Z88.8 Allergy status to other drugs, medicaments and biological substances; Z88.5 Allergy status to narcotic agent; Z79.899 Other long term (current) drug therapy
CPT/HCPCS: 71046; 74177; 80053; 80500; 81001; 83690; 84484; 84703; 85007; 85025; 93005; 93010; 96375; 99285-25; J1885; J2405; J7121; Q9967

== ENCOUNTER 2021-02-04 21:51 | Emergency (ER) | payer MEDICAID ==
[~2021-02-04] VITALS: Ht 165.1 cm; Wt 94.8 kg
[~2021-02-04 21:51] MED LIST changes: +BUPRENORPHINE HC8 MG PO; +ONDANSETRON ODT4 MG PO
[2021-02-05] MEDS ORDERED: HYDROXYZINE PAM50 MG PO (00:07)
[2021-02-05] MEDS ORDERED: VENTOLIN HFA18 GM INH (00:07)
--- NOTE | 2021-02-06 17:56 | EKG ---
[facility] [address] [facility] [place], [place] [address] Signed Normal sinus rhythm Normal ECG When compared with ECG of 12-JAN-2021 05:02, No significant change was found Confirmed by ALIYA HENDERSON DO ([id number]) on 02/06/2021 5:56:32 PM Electronically Signed By: ALIYA HENDERSON DO 02/06/21 1756 PATIENT NAME: KEMAL ROLLE Electrocardiogram DATE OF : 75 PHYSICIAN: ALIYA HENDERSON DO REPORT #: [id number] REPORT IS CONFIDENTIAL AND NOT TO BE RELEASED WITHOUT AUTHORIZATION
== END 2021-02-05 00:49 | disposition home or self-care (01) ==
LOC: ED 21:51
DX: R06.02 Shortness of breath (principal); R07.89 Other chest pain; Z77.098 Contact with and (suspected) exposure to other hazardous, chiefly nonmedicinal, chemicals; F17.200 Nicotine dependence, unspecified, uncomplicated; Z88.8 Allergy status to other drugs, medicaments and biological substances; Z88.5 Allergy status to narcotic agent; Z88.0 Allergy status to penicillin; Z79.899 Other long term (current) drug therapy
CPT/HCPCS: 71045; 82375; 84484; 93005; 93010; 99285-25